=== PATIENT | male | born 1950 | race Two or more races ===

== ENCOUNTER → 2018-11-09 | Outpatient (CLI) | payer OTHER ==
[~2018-11-09] MED LIST: ASPI81TA27 PO; ATOR20TA50 PO; METF500T PO
[2018-11-09 08:54] LABS: Cholesterol 125 mg/dL (< 200); HDL Cholesterol 49 mg/dL (40-59); LDL Cholesterol 62 mg/dL (< 100); Triglycerides 140 mg/dL (< 150)
[2018-11-09 09:08] LABS: Free T4 (Free Thyroxine) 1.07 ng/dL (0.89-1.76); Prostate Specific Antigen 0.43 ng/mL (0.0-4.0)
== END | disposition home or self-care (01) ==
LOC: LAB 07:51
PROVIDERS: ATTEND Internal Medicine
DX: E78.5 Hyperlipidemia, unspecified (principal); E03.9 Hypothyroidism, unspecified; E11.9 Type 2 diabetes mellitus without complications; M25.511 Pain in right shoulder; E78.00 Pure hypercholesterolemia, unspecified
CPT/HCPCS: 36415; 80061; 82043; 83036; 84153; 84439; 84443

== ENCOUNTER → 2019-04-06 | Outpatient (CLI) | payer OTHER ==
[~2019-04-06] MED LIST changes: +ASPI-404 PO; -ASPI81TA27 PO
[2019-04-06 10:33] LABS: Basophils # (auto) 0.1 uL; Basophils % (auto) 1.6 % (0.0-2.0); Eosinophils # (auto) 0.3 uL; Eosinophils % (auto) 4.1 % (0.0-7.0); Hematocrit 48.2 % (41.0-53.0); Hemoglobin 16.8 g/dL (13.5-17.5); Lymphocytes # (auto) 2.5 uL; Lymphocytes % (auto) 36.4 % (10.0-50.0); Mean Corpuscular Hemoglobin 31.5 pg (28.0-32.0); Mean Corpuscular Hgb Conc. 34.9 g/dL (32.0-36.0); Mean Corpuscular Volume 90.2 fL (80.0-100.0); Monocytes # (auto) 0.5 uL; Monocytes % (auto) 7.6 % (0.0-12.0); Neutrophils # (auto) 3.5 uL; Neutrophils % (auto) 50.3 % (37.0-80.0); Nucleated Red Blood Cells % 0.3 %; Platelet Count (auto) 205 10^3/uL (140-450); Red Blood Cells 5.34 10^6/uL (4.5-5.90); Red Cell Distribution Width 13.2 % (11.8-14.3)
[2019-04-06 11:01] LABS: BUN/Creatinine Ratio 11.7; Calcium 9.1 mg/dL (8.5-10.1); Potassium 3.6 mmol/L (3.5-5.1)
[2019-04-06 11:15] LABS: Bilirubin, Total 1.8 mg/dL (0.2-1.0); Total Protein 7.7 g/dL (6.4-8.2)
== END | disposition home or self-care (01) ==
LOC: LAB 09:44
PROVIDERS: ATTEND Internal Medicine
DX: Z12.11 Encounter for screening for malignant neoplasm of colon (principal); E11.9 Type 2 diabetes mellitus without complications; E03.9 Hypothyroidism, unspecified
CPT/HCPCS: 36415; 80053; 83036; 84439; 84443; 85025

== ENCOUNTER → 2019-06-16 | Outpatient (CLI) | payer OTHER | END | disposition home or self-care (01) | LOC: Rad HDHVI 08:57 | PROVIDERS: ATTEND Internal Medicine Cardiovascular Disease | DX: I65.22 Occlusion and stenosis of left carotid artery (principal); I69.328 Other speech and language deficits following cerebral infarction; E11.9 Type 2 diabetes mellitus without complications; I10 Essential (primary) hypertension; Z95.1 Presence of aortocoronary bypass graft | CPT/HCPCS: 93880 ==

== ENCOUNTER → 2019-06-28 | Outpatient (CLI) | payer OTHER ==
[~2019-06-28] VITALS: Ht 177.8 cm; Wt 96.2 kg
[~2019-06-28] MED LIST changes: +ADENOSINE 81 MG in GIVE UN-DILUTED 0 ML IV ONE; +ADENOSINE 90 MG/30 ML INJ IV ONE
== END | disposition home or self-care (01) ==
LOC: Rad HDHVI 09:12
PROVIDERS: ATTEND Internal Medicine Cardiovascular Disease
DX: E11.9 Type 2 diabetes mellitus without complications (principal); R42 Dizziness and giddiness; I10 Essential (primary) hypertension; E78.00 Pure hypercholesterolemia, unspecified; Z95.1 Presence of aortocoronary bypass graft
CPT/HCPCS: 78452; 93005; 96374; 96375; A9500; J0153

== ENCOUNTER → 2020-01-24 | Outpatient (CLI) | payer OTHER ==
[~2020-01-24] MED LIST changes: -ADENOSINE 81 MG in GIVE UN-DILUTED 0 ML IV ONE; -ADENOSINE 90 MG/30 ML INJ IV ONE
[2020-01-24 07:38] LABS: Basophils # (auto) 0.1 10 ^3/uL (0-0.2); Lymphocytes # (auto) 2.1 10 ^3/uL (0.4-5.4); Monocytes # (auto) 0.6 10 ^3/uL (0-1.3); Neutrophils # (auto) 5.2 10 ^3/uL (1.6-8.6); Neutrophils % (auto) 62.6 % (37.0-80.0)
[2020-01-24 07:39] LABS: Basophils % (auto) 1.1 % (0.0-2.0); Eosinophils # (auto) 0.2 10 ^3/uL (0-0.8); Hematocrit 51.5 % (41.0-53.0); Lymphocytes % (auto) 25.8 % (10.0-50.0); Mean Corpuscular Hemoglobin 31.7 pg (28.0-32.0); Mean Corpuscular Hgb Conc. 34.9 g/dL (32.0-36.0); Mean Corpuscular Volume 90.8 fL (80.0-100.0); Monocytes % (auto) 7.5 % (0.0-12.0); Nucleated Red Blood Cells % 0.2 %; Platelet Count (auto) 228 10^3/uL (140-450); Red Blood Cells 5.67 10^6/uL (4.5-5.90); Red Cell Distribution Width 13.1 % (11.8-14.3); White Blood Cell 8.2 10^3/uL (4.4-10.8)
[2020-01-24 07:55] LABS: Urine Bacteria NONE SEEN /hpf (None Seen); Urine Blood Negative /uL (Negative); Urine Hyaline Cast FEW /lpf (0 - 2); Urine Mucus FEW (None Seen); Urine Specific Gravity 1.031 (1.001-1.035); Urine WBC 7 /hpf (0 - 3)
[2020-01-24 08:17] LABS: Albumin 4.1 g/dL (3.4-5.0); Calcium 9.4 mg/dL (8.5-10.1); Potassium 4.5 mmol/L (3.5-5.1)
[2020-01-24 08:22] LABS: Bilirubin, Total 1.9 mg/dL (0.2-1.0); Total Protein 8.3 g/dL (6.4-8.2)
[2020-01-24 09:01] LABS: BUN/Creatinine Ratio 15.1
[2020-01-24 10:31] LABS: Free T4 (Free Thyroxine) 1.18 ng/dL (0.89-1.76); Prostate Specific Antigen 0.41 ng/mL (0.0-4.0)
== END | disposition home or self-care (01) ==
LOC: LAB 07:08
PROVIDERS: ATTEND Internal Medicine
DX: I25.10 Atherosclerotic heart disease of native coronary artery without angina pectoris (principal); E11.9 Type 2 diabetes mellitus without complications; I10 Essential (primary) hypertension
CPT/HCPCS: 36415; 80053; 80061; 81001; 82043; 82607; 83036; 84153; 84439; 84443; 85025; 85652

== ENCOUNTER → 2022-03-13 | Outpatient (CLI) | payer OTHER ==
[~2022-03-13] MED LIST changes: -ASPI-404 PO; +ASPI-543 PO
[2022-03-13 07:19] LABS: Basophils # (auto) 0.1 10 ^3/uL (0-0.2); Basophils % (auto) 0.8 % (0.0-2.0); Eosinophils # (auto) 0.2 10 ^3/uL (0-0.8); Eosinophils % (auto) 3.5 % (0.0-7.0); Hematocrit 43.5 % (41.0-53.0); Hemoglobin 15.2 g/dL (13.5-17.5); Lymphocytes # (auto) 2.1 10 ^3/uL (0.4-5.4); Mean Corpuscular Hemoglobin 31.5 pg (28.0-32.0); Mean Corpuscular Hgb Conc. 34.9 g/dL (32.0-36.0); Mean Corpuscular Volume 90.2 fL (80.0-100.0); Monocytes # (auto) 0.5 10 ^3/uL (0-1.3); Monocytes % (auto) 7.8 % (0.0-12.0); Neutrophils # (auto) 3.9 10 ^3/uL (1.6-8.6); Neutrophils % (auto) 56.9 % (37.0-80.0); Nucleated Red Blood Cells % 0.1 %; Red Blood Cells 4.83 10^6/uL (4.5-5.90); Red Cell Distribution Width 13.5 % (11.8-14.3); White Blood Cell 6.9 10^3/uL (4.4-10.8)
[2022-03-13 07:40] LABS: Albumin 3.8 g/dL (3.4-5.0); Calcium 8.9 mg/dL (8.5-10.1); Potassium 3.8 mmol/L (3.5-5.1)
[2022-03-13 07:45] LABS: BUN/Creatinine Ratio 17.2; Bilirubin, Total 2.9 mg/dL (0.2-1.0); Total Protein 7.6 g/dL (6.4-8.2)
[2022-03-13 08:43] LABS: Free T4 (Free Thyroxine) 1.07 ng/dL (0.89-1.76); Prostate Specific Antigen 0.4 ng/mL (0.0-4.0)
[2022-03-13 12:01] LABS: Protein, Urine 12.1 mg/dL (0.0-11.9)
[2022-03-13 16:57] LABS: Urine Bacteria NONE SEEN /hpf (None Seen); Urine Blood Negative /uL (Negative); Urine Mucus FEW (None Seen); Urine Specific Gravity 1.031 (1.001-1.035); Urine WBC 3 /hpf (0 - 3)
== END | disposition home or self-care (01) ==
LOC: LAB 06:42
PROVIDERS: ATTEND Internal Medicine
DX: E11.9 Type 2 diabetes mellitus without complications (principal); I10 Essential (primary) hypertension
CPT/HCPCS: 36415; 80053; 80061; 81001; 82043; 82570; 82607; 83036; 84153; 84156; 84439; 84443; 85025; 85652

== ENCOUNTER → 2022-03-19 | Outpatient (CLI) | payer OTHER | END | disposition home or self-care (01) | LOC: LAB 12:46 | PROVIDERS: ATTEND Internal Medicine | DX: N40.0 Benign prostatic hyperplasia without lower urinary tract symptoms (principal); E11.9 Type 2 diabetes mellitus without complications; I10 Essential (primary) hypertension | CPT/HCPCS: 82270 ==

== ENCOUNTER 2022-04-29 23:59 | Emergency (ER) | payer OTHER ==
[~2022-04-29] VITALS: Ht 175.3 cm; Wt 91.8 kg
[2022-04-30 00:40] LABS: Basophils # (auto) 0.1 10 ^3/uL (0-0.2); Basophils % (auto) 0.7 % (0.0-2.0); Eosinophils # (auto) 0.4 10 ^3/uL (0-0.8); Eosinophils % (auto) 4.1 % (0.0-7.0); Hematocrit 45.6 % (41.0-53.0); Hemoglobin 16.2 g/dL (13.5-17.5); Lymphocytes # (auto) 3.8 10 ^3/uL (0.4-5.4); Lymphocytes % (auto) 44.9 % (10.0-50.0); Mean Corpuscular Hemoglobin 32.2 pg (28.0-32.0); Mean Corpuscular Hgb Conc. 35.4 g/dL (32.0-36.0); Mean Corpuscular Volume 91.1 fL (80.0-100.0); Monocytes # (auto) 0.7 10 ^3/uL (0-1.3); Neutrophils # (auto) 3.6 10 ^3/uL (1.6-8.6); Neutrophils % (auto) 42.3 % (37.0-80.0); Nucleated Red Blood Cells % 0.1 %; Red Blood Cells 5.01 10^6/uL (4.5-5.90); Red Cell Distribution Width 12.8 % (11.8-14.3); White Blood Cell 8.5 10^3/uL (4.4-10.8)
[2022-04-30 01:00] LABS: Calcium 9.2 mg/dL (8.5-10.1); Potassium 3.8 mmol/L (3.5-5.1)
[2022-04-30 01:03] LABS: BUN/Creatinine Ratio 14.7
[2022-04-30 01:05] LABS: Bilirubin, Total 1.9 mg/dL (0.2-1.0); Total Protein 7.7 g/dL (6.4-8.2)
[2022-04-30] MEDS ORDERED: NITROGLYCERIN 0.4 MG SL TAB SL ONE (01:15)
[2022-04-30 01:48] LABS: Urine Bacteria FEW /hpf (None Seen); Urine Blood Negative /uL (Negative); Urine Mucus FEW (None Seen); Urine Specific Gravity 1.035 (1.001-1.035); Urine WBC 54 /hpf (0 - 3)
[2022-04-30] MEDS ORDERED: BACDST PO (02:27)
[2022-04-30] MEDS ORDERED: cloNIDine HCL 0.1 MG TAB PO ONE ×2 (02:30→03:30)
[2022-04-30] MEDS ORDERED: cefTRIAXone SOD 1,000 MG VL IM ONE (02:30)
[2022-04-30] MEDS ORDERED: cloNIDine HCL 0.1 MG TAB ONE (03:08)
[2022-04-30 03:14] VITALS: BP 170/83
== END 2022-04-30 04:17 | disposition home or self-care (01) ==
LOC: ER 23:59
DX: R07.89 Other chest pain (principal); N39.0 Urinary tract infection, site not specified; I10 Essential (primary) hypertension; E11.9 Type 2 diabetes mellitus without complications; Z95.1 Presence of aortocoronary bypass graft; Z98.61 Coronary angioplasty status
CPT/HCPCS: 36415; 71045; 80053; 81001; 84484; 85025; 93005; 96372; 99285; J0696

== ENCOUNTER → 2022-07-10 | Outpatient (CLI) | payer OTHER ==
[~2022-07-10] MED LIST changes: +BACDST PO
== END | disposition home or self-care (01) ==
LOC: Rad HDHVI 08:03
PROVIDERS: ATTEND Internal Medicine Cardiovascular Disease
DX: I08.8 Other rheumatic multiple valve diseases (principal); R07.89 Other chest pain; I10 Essential (primary) hypertension
CPT/HCPCS: 93306

== ENCOUNTER → 2022-07-17 | Outpatient (CLI) | payer OTHER | END | disposition home or self-care (01) | LOC: Rad HDHVI 10:57 | PROVIDERS: ATTEND Internal Medicine Cardiovascular Disease | DX: I10 Essential (primary) hypertension (principal); E78.5 Hyperlipidemia, unspecified | CPT/HCPCS: 93880 ==

== ENCOUNTER → 2022-07-25 | Outpatient (CLI) | payer OTHER ==
[~2022-07-25] VITALS: Ht 175.3 cm; Wt 88.5 kg
[~2022-07-25] MED LIST changes: +ADENOSINE 74 MG in GIVE UN-DILUTED 0 ML IV ONE; +ADENOSINE 90 MG/30 ML INJ IV ONE
== END | disposition home or self-care (01) ==
LOC: Rad HDHVI 08:05
PROVIDERS: ATTEND Internal Medicine Cardiovascular Disease
DX: I10 Essential (primary) hypertension (principal); E78.5 Hyperlipidemia, unspecified; E11.9 Type 2 diabetes mellitus without complications; R07.9 Chest pain, unspecified; I25.10 Atherosclerotic heart disease of native coronary artery without angina pectoris; Z95.1 Presence of aortocoronary bypass graft
CPT/HCPCS: 78452; 93005; 96374; 96375; A9500; J0153

== ENCOUNTER → 2022-10-24 | Outpatient (CLI) | payer OTHER ==
[~2022-10-24] MED LIST changes: -ADENOSINE 74 MG in GIVE UN-DILUTED 0 ML IV ONE; -ADENOSINE 90 MG/30 ML INJ IV ONE
[2022-10-24 08:12] LABS: Basophils # (auto) 0.1 10 ^3/uL (0-0.2); Basophils % (auto) 0.9 % (0.0-2.0); Eosinophils # (auto) 0.5 10 ^3/uL (0-0.8); Eosinophils % (auto) 5.2 % (0.0-7.0); Hematocrit 44.8 % (41.0-53.0); Hemoglobin 16.1 g/dL (13.5-17.5); Lymphocytes # (auto) 2.3 10 ^3/uL (0.4-5.4); Lymphocytes % (auto) 25.7 % (10.0-50.0); Mean Corpuscular Hemoglobin 33.2 pg (28.0-32.0); Mean Corpuscular Volume 92.3 fL (80.0-100.0); Monocytes # (auto) 0.7 10 ^3/uL (0-1.3); Monocytes % (auto) 7.6 % (0.0-12.0); Neutrophils # (auto) 5.4 10 ^3/uL (1.6-8.6); Neutrophils % (auto) 60.6 % (37.0-80.0); Nucleated Red Blood Cells % 0.1 %; Red Blood Cells 4.85 10^6/uL (4.5-5.90); Red Cell Distribution Width 13.5 % (11.8-14.3); White Blood Cell 8.9 10^3/uL (4.4-10.8)
[2022-10-24 08:54] LABS: Albumin 3.9 g/dL (3.4-5.0); Calcium 9.2 mg/dL (8.5-10.1); Potassium 4.4 mmol/L (3.5-5.1)
[2022-10-24 08:58] LABS: Bilirubin, Total 1.5 mg/dL (0.2-1.0); Total Protein 7.7 g/dL (6.4-8.2)
== END | disposition home or self-care (01) ==
LOC: LAB 07:00
PROVIDERS: ATTEND Internal Medicine
DX: I10 Essential (primary) hypertension (principal); E11.9 Type 2 diabetes mellitus without complications; I25.10 Atherosclerotic heart disease of native coronary artery without angina pectoris
CPT/HCPCS: 36415; 80053; 83036; 85025

== ENCOUNTER → 2022-11-20 | Outpatient (CLI) | payer OTHER ==
[2022-11-20 13:12] LABS: Micro Albumin 5.56 mg/L (0-30.0)
== END | disposition home or self-care (01) ==
LOC: LAB 11:50
PROVIDERS: ATTEND Internal Medicine
DX: E11.21 Type 2 diabetes mellitus with diabetic nephropathy (principal)
CPT/HCPCS: 82043; 82570

== ENCOUNTER 2023-05-24 18:12 | Inpatient (IN) | payer OTHER ==
[~2023-05-24] VITALS: Ht 175.3 cm; Wt 90.2 kg
[2023-05-24] MEDS ORDERED: NITROGLYCERIN 2% OINT 1GM PKG TD ONE (19:00)
[2023-05-24] MEDS ORDERED: amLODIPine BESYLATE 5 MG TAB PO ONE (19:00)
[2023-05-24 19:12] LABS: Basophils # (auto) 0.1 10 ^3/uL (0-0.2); Basophils % (auto) 0.8 % (0.0-2.0); Eosinophils # (auto) 0.4 10 ^3/uL (0-0.8); Eosinophils % (auto) 4.2 % (0.0-7.0); Hematocrit 48.7 % (41.0-53.0); Lymphocytes # (auto) 2.7 10 ^3/uL (0.4-5.4); Lymphocytes % (auto) 31.2 % (10.0-50.0); Mean Corpuscular Hemoglobin 32.4 pg (28.0-32.0); Mean Corpuscular Hgb Conc. 34.9 g/dL (32.0-36.0); Mean Corpuscular Volume 92.9 fL (80.0-100.0); Monocytes # (auto) 0.7 10 ^3/uL (0-1.3); Neutrophils # (auto) 4.8 10 ^3/uL (1.6-8.6); Neutrophils % (auto) 55.8 % (37.0-80.0); Nucleated Red Blood Cells % 0.4 %; Red Blood Cells 5.25 10^6/uL (4.5-5.90); Red Cell Distribution Width 13.4 % (11.8-14.3); White Blood Cell 8.6 10^3/uL (4.4-10.8)
[2023-05-24 19:21] LABS: Magnesium 1.8 mg/dL (1.6-2.6)
[2023-05-24 19:23] LABS: Albumin 4.4 g/dL (3.2-4.8); Alkaline Phosphatase 120 U/L (46-116); Anion Gap 7 (5-15); Aspartate Aminotransferase 10 U/L (13-40); BUN/Creatinine Ratio 8.4 (10.0-20.0); Bilirubin, Total 1.8 mg/dL (0.2-1.0); Blood Urea Nitrogen 7 mg/dL (9-23); Calcium 9.6 mg/dL (8.7-10.4); Carbon Dioxide 26 mmol/L (20-30); Chloride 103 mmol/L (98-107); Glucose 234 mg/dL (74-106); Potassium 3.8 mmol/L (3.5-5.1); Sodium 136 mmol/L (136-145)
[2023-05-24 19:24] LABS: Total Protein 7.6 g/dL (5.7-8.2)
[2023-05-24 19:26] LABS: INR 0.99 (0.9-1.15); Prothrombin Time 10.4 sec (9.3-11.8)
[2023-05-24 19:30] VITALS: O2SAT 97
[2023-05-24 19:30] LABS: Alanine Aminotransferase < 9 U/L (7-40)
[2023-05-24 21:32] LABS: Urine Bacteria NONE SEEN /hpf (None Seen); Urine Blood Negative /uL (Negative); Urine Clarity Clear (Clear); Urine Color Colorless (Yellow); Urine Protein, UAD Negative (Negative); Urine Specific Gravity 1.009 (1.001-1.035); Urine Urobilinogen Normal (Negative); Urine WBC 1 /hpf (0 - 3); Urine pH 5.5 (5.0-8.0)
[2023-05-24] MEDS ORDERED: hydrALAZINE HCL 20 MG/ML VL IV PRN (23:30)
[2023-05-24] MEDS ORDERED: ACETAMINOPHEN 325 MG TAB PO PRN (23:30)
[2023-05-24] MEDS ORDERED: ONDANSETRON HCL 4 MG/2 ML VIAL IV PRN (23:30)
[2023-05-24] MEDS ORDERED: DOCUSATE SOD 100 MG CAP PO PRN (23:30)
[2023-05-24] MEDS ORDERED: DEXTROSE (50%) 50ML SYRG IV PRN (23:30)
[2023-05-24] MEDS ORDERED: HYDROcodone-ACET 5/325MG TAB PO PRN (23:30)
[2023-05-24] MEDS: SODIUM CHLORIDE 0.9% 1,000 ML IV SCH (23:52)
[2023-05-25] VITALS (8 sets, daily range): BP systolic 121–157; BP diastolic 73–78; PULSE 64–101; RESP 13–21; TEMP 36.6; O2SAT 95–98
[2023-05-25] MEDS ORDERED: NITROGLYCERIN 0.4 MG SL TAB SL PRN
[2023-05-25] MEDS ORDERED: MORPHINE SULFATE INJ 2 MG/ml SYRG IV PRN
[2023-05-25 05:08] LABS: Basophils # (auto) 0.1 10 ^3/uL (0-0.2); Basophils % (auto) 0.8 % (0.0-2.0); Eosinophils # (auto) 0.4 10 ^3/uL (0-0.8); Eosinophils % (auto) 5.1 % (0.0-7.0); Hematocrit 45.1 % (41.0-53.0); Hemoglobin 16.1 g/dL (13.5-17.5); Lymphocytes % (auto) 24.7 % (10.0-50.0); Mean Corpuscular Hemoglobin 32.6 pg (28.0-32.0); Mean Corpuscular Hgb Conc. 35.7 g/dL (32.0-36.0); Mean Corpuscular Volume 91.5 fL (80.0-100.0); Monocytes # (auto) 0.6 10 ^3/uL (0-1.3); Monocytes % (auto) 7.6 % (0.0-12.0); Neutrophils # (auto) 4.9 10 ^3/uL (1.6-8.6); Neutrophils % (auto) 61.8 % (37.0-80.0); Nucleated Red Blood Cells % 0.2 %; Red Blood Cells 4.93 10^6/uL (4.5-5.90); Red Cell Distribution Width 13.2 % (11.8-14.3)
[2023-05-25 05:24] LABS: Albumin 3.8 g/dL (3.2-4.8); Alkaline Phosphatase 88 U/L (46-116); Anion Gap 6 (5-15); Aspartate Aminotransferase < 8 U/L (13-40); Blood Urea Nitrogen 7 mg/dL (9-23); Calcium 9.1 mg/dL (8.7-10.4); Carbon Dioxide 28 mmol/L (20-30); Chloride 106 mmol/L (98-107); Glucose 172 mg/dL (74-106); Potassium 3.7 mmol/L (3.5-5.1); Sodium 140 mmol/L (136-145)
[2023-05-25 05:25] LABS: Bilirubin, Total 2.5 mg/dL (0.2-1.0); Total Protein 6.7 g/dL (5.7-8.2)
[2023-05-25 05:26] LABS: BUN/Creatinine Ratio 8.6 (10.0-20.0)
[2023-05-25 06:10] LABS: Alanine Aminotransferase < 9 U/L (7-40)
[2023-05-25] MEDS: ACCU-CHEK COMFORT CURVE STRIP VI SCH ×4 (06:59→21:34)
[2023-05-25] MEDS ORDERED: InsuLIN REG 1unit/0.01ml Soln (100units/ml) SC SCH ×2 (07:00→22:00)
[2023-05-25] MEDS: ASPirin 81 mg TAB PO SCH (10:00)
[2023-05-25] MEDS: amLODIPine BESYLATE 5 MG TAB PO SCH (11:17)
[2023-05-25 13:00] LABS: LDL Cholesterol 130 mg/dL (< 100); Triglycerides 156 mg/dL (< 150)
[2023-05-25 13:01] LABS: Cholesterol 194 mg/dL (< 200); HDL Cholesterol 50 mg/dL (40-59)
[2023-05-25] MEDS: SODIUM CHLORIDE 0.9% 1,000 ML IV SCH (16:10)
[2023-05-25] MEDS ORDERED: ATORVASTATIN 20 MG TAB PO SCH (22:00)
[2023-05-26 04:55] VITALS: BP 143/82; PULSE 74; RESP 16; TEMP 97.8; O2SAT 98
[2023-05-26] MEDS: ACCU-CHEK COMFORT CURVE STRIP VI SCH ×3 (06:14→17:00)
[2023-05-26] MEDS ORDERED: EMPAGLIFLOZIN 10 MG TAB PO SCH (07:00)
[2023-05-26 08:40] VITALS: BP 137/77; PULSE 71; RESP 18; TEMP 97.7; O2SAT 97
[2023-05-26] MEDS: SODIUM CHLORIDE 0.9% 1,000 ML IV SCH (08:50)
[2023-05-26] MEDS: ASPirin 81 mg TAB PO SCH (11:06)
[2023-05-26] MEDS: amLODIPine BESYLATE 5 MG TAB PO SCH (11:07)
[2023-05-26 12:35] VITALS: BP 122/84; PULSE 64; RESP 18; TEMP 97.7; O2SAT 98
[2023-05-26 16:40] VITALS: BP 121/68; PULSE 65; RESP 18; TEMP 97.5; O2SAT 99
== END 2023-05-26 18:00 | disposition home or self-care (01) | DRG 313 ==
LOC: ER 18:12 → TELE 23:58 → WEST WING 05-25 08:54 → TELE-WESTW 05-25 23:59
PROVIDERS: ADMIT Nurse Practitioner Family; ATTEND Family Medicine
DX: R07.89 Other chest pain (principal); I69.351 Hemiplegia and hemiparesis following cerebral infarction affecting right dominant side; I16.0 Hypertensive urgency; E11.65 Type 2 diabetes mellitus with hyperglycemia; M19.90 Unspecified osteoarthritis, unspecified site; I10 Essential (primary) hypertension; Z81.8 Family history of other mental and behavioral disorders; Z83.3 Family history of diabetes mellitus; Z95.1 Presence of aortocoronary bypass graft; Z95.5 Presence of coronary angioplasty implant and graft
CPT/HCPCS: 36415; 71045; 80053; 80061; 81001; 82962; 83690; 83735; 84484; 85025; 85379; 85610; 93005; G0378

== ENCOUNTER → 2023-05-29 | Outpatient (CLI) | payer OTHER ==
[2023-05-29 07:06] LABS: Basophils # (auto) 0.1 10 ^3/uL (0-0.2); Basophils % (auto) 0.9 % (0.0-2.0); Eosinophils # (auto) 0.4 10 ^3/uL (0-0.8); Eosinophils % (auto) 5.3 % (0.0-7.0); Hematocrit 46.8 % (41.0-53.0); Hemoglobin 16.4 g/dL (13.5-17.5); Lymphocytes # (auto) 2.4 10 ^3/uL (0.4-5.4); Lymphocytes % (auto) 32.5 % (10.0-50.0); Mean Corpuscular Hemoglobin 32.4 pg (28.0-32.0); Mean Corpuscular Volume 92.5 fL (80.0-100.0); Monocytes # (auto) 0.6 10 ^3/uL (0-1.3); Monocytes % (auto) 8.4 % (0.0-12.0); Neutrophils # (auto) 3.8 10 ^3/uL (1.6-8.6); Neutrophils % (auto) 52.9 % (37.0-80.0); Nucleated Red Blood Cells % 0.1 %; Red Blood Cells 5.06 10^6/uL (4.5-5.90); Red Cell Distribution Width 13.6 % (11.8-14.3); White Blood Cell 7.3 10^3/uL (4.4-10.8)
[2023-05-29 07:48] LABS: Erythrocyte Sedimentation Rate 8 mm/hr (0-20); Prostate Specific Antigen 0.42 ng/mL (0.0-4.0)
[2023-05-29 07:50] LABS: Albumin 4.4 g/dL (3.2-4.8); Alkaline Phosphatase 92 U/L (46-116); Anion Gap 6 (5-15); Aspartate Aminotransferase 18 U/L (13-40); BUN/Creatinine Ratio 14.4 (10.0-20.0); Blood Urea Nitrogen 13 mg/dL (9-23); Calcium 9.5 mg/dL (8.5-10.1); Carbon Dioxide 29 mmol/L (20-30); Chloride 105 mmol/L (98-107); Cholesterol 162 mg/dL (< 200); Glucose 138 mg/dL (74-106); LDL Cholesterol 96 mg/dL (< 100); Potassium 4.3 mmol/L (3.5-5.1); Sodium 140 mmol/L (136-145); Triglycerides 129 mg/dL (< 150)
[2023-05-29 07:51] LABS: Bilirubin, Total 3.8 mg/dL (0.2-1.0); HDL Cholesterol 49 mg/dL (40-59); Total Protein 7.4 g/dL (5.7-8.2)
[2023-05-29 07:52] LABS: Alanine Aminotransferase 9 U/L (7-40)
[2023-05-29 07:53] LABS: Free T4 (Free Thyroxine) 1.16 ng/dL (0.89-1.76)
[2023-05-29 13:08] LABS: Urine Bacteria FEW /hpf (None Seen); Urine Blood Negative /uL (Negative); Urine Clarity Clear (Clear); Urine Color Yellow (Yellow); Urine Protein, UAD Negative (Negative); Urine Specific Gravity 1.026 (1.001-1.035); Urine Urobilinogen Normal (Negative); Urine WBC 1 /hpf (0 - 3); Urine pH 5.5 (5.0-8.0)
== END | disposition home or self-care (01) ==
LOC: LAB 06:22
PROVIDERS: ATTEND Internal Medicine
DX: I10 Essential (primary) hypertension (principal); E11.9 Type 2 diabetes mellitus without complications; I25.10 Atherosclerotic heart disease of native coronary artery without angina pectoris
CPT/HCPCS: 36415; 80053; 80061; 81001; 82607; 83036; 84153; 84439; 84443; 85025; 85652

== ENCOUNTER → 2023-06-04 | Outpatient (CLI) | payer OTHER ==
[2023-06-04 13:07] LABS: Albumin 4.3 g/dL (3.2-4.8); Alkaline Phosphatase 87 U/L (46-116); Anion Gap 6 (5-15); Aspartate Aminotransferase < 8 U/L (13-40); BUN/Creatinine Ratio 9.4 (10.0-20.0); Bilirubin, Total 2.6 mg/dL (0.2-1.0); Blood Urea Nitrogen 9 mg/dL (9-23); Calcium 9.6 mg/dL (8.5-10.1); Carbon Dioxide 27 mmol/L (20-30); Chloride 105 mmol/L (98-107); Glucose 132 mg/dL (74-106); Potassium 4.1 mmol/L (3.5-5.1); Sodium 138 mmol/L (136-145)
[2023-06-04 13:08] LABS: Total Protein 7.4 g/dL (5.7-8.2)
[2023-06-04 13:34] LABS: Alanine Aminotransferase < 9 U/L (7-40)
[2023-06-05 10:47] LABS: Anti-Nuclear Antibody Direct Negative (Negative); Carbohydrate Antigen 19-9 9 U/mL (0-35); Hepatitis B Core Total Antibod Negative (Negative)
[2023-06-05 12:42] LABS: Hepatitis B Surface Antibody Negative (Negative)
[2023-06-05 12:54] LABS: Hepatitis B Surface Antigen Negative (Negative)
[2023-06-05 13:15] LABS: Hepatitis A Ab IgM Negative; Hepatitis B Core IgM Negative
[2023-06-05 13:16] LABS: Hepatitis C Antibody Negative (Negative)
[2023-06-05 13:22] LABS: Hepatitis A Total Antibody Positive (Negative)
[2023-06-06 14:06] LABS: Mitochondrial (M2) Antibody <20.0 Units (0.0-20.0)
== END | disposition home or self-care (01) ==
LOC: LAB 11:55
PROVIDERS: ATTEND Internal Medicine
DX: E11.51 Type 2 diabetes mellitus with diabetic peripheral angiopathy without gangrene (principal); E53.8 Deficiency of other specified B group vitamins; E80.6 Other disorders of bilirubin metabolism; R17 Unspecified jaundice; R10.13 Epigastric pain; R10.12 Left upper quadrant pain
CPT/HCPCS: 36415; 80053; 83615; 85045; 86038; 86301; 86705; 86706; 86708; 86709; 86803; 86880; 87340

== ENCOUNTER 2023-06-25 15:00 | Inpatient (IN) | payer OTHER ==
[~2023-06-25] VITALS: Ht 175.3 cm; Wt 89.4 kg
[2023-06-25 15:30] LABS: Basophils # (auto) 0.1 10 ^3/uL (0-0.2); Basophils % (auto) 0.8 % (0.0-2.0); Eosinophils # (auto) 0.3 10 ^3/uL (0-0.8); Eosinophils % (auto) 3.8 % (0.0-7.0); Hematocrit 47.3 % (41.0-53.0); Hemoglobin 16.6 g/dL (13.5-17.5); Lymphocytes # (auto) 2.3 10 ^3/uL (0.4-5.4); Lymphocytes % (auto) 29.9 % (10.0-50.0); Mean Corpuscular Hemoglobin 32.3 pg (28.0-32.0); Mean Corpuscular Hgb Conc. 35.1 g/dL (32.0-36.0); Mean Corpuscular Volume 92.2 fL (80.0-100.0); Monocytes # (auto) 0.6 10 ^3/uL (0-1.3); Monocytes % (auto) 7.8 % (0.0-12.0); Neutrophils # (auto) 4.4 10 ^3/uL (1.6-8.6); Neutrophils % (auto) 57.7 % (37.0-80.0); Nucleated Red Blood Cells % 0.5 %; Red Blood Cells 5.13 10^6/uL (4.5-5.90); Red Cell Distribution Width 13.2 % (11.8-14.3); White Blood Cell 7.6 10^3/uL (4.4-10.8)
[2023-06-25 15:53] LABS: Alanine Aminotransferase 10 U/L (7-40); Alkaline Phosphatase 105 U/L (46-116); Anion Gap 8 (5-15); Aspartate Aminotransferase 17 U/L (13-40); BUN/Creatinine Ratio 17.8 (10.0-20.0); Blood Urea Nitrogen 16 mg/dL (9-23); Calcium 9.6 mg/dL (8.5-10.1); Carbon Dioxide 29 mmol/L (20-30); Chloride 104 mmol/L (98-107); Glucose 213 mg/dL (74-106); Potassium 4.1 mmol/L (3.5-5.1); Sodium 141 mmol/L (136-145)
[2023-06-25 15:54] LABS: Albumin 4.4 g/dL (3.2-4.8); Bilirubin, Total 2.2 mg/dL (0.2-1.0); Total Protein 7.1 g/dL (5.7-8.2)
[2023-06-25] MEDS ORDERED: ASPirin 325 MG TAB PO ONE (17:00)
[2023-06-25 20:00] VITALS: RESP 16; O2SAT 98
[2023-06-25] MEDS ORDERED: NITROGLYCERIN 0.4 MG SL TAB SL PRN (20:15)
[2023-06-25] MEDS ORDERED: ACETAMINOPHEN 325 MG TAB PO PRN (20:15)
[2023-06-25] MEDS ORDERED: ONDANSETRON HCL 4 MG/2 ML VIAL IV PRN (20:15)
[2023-06-25] MEDS ORDERED: DEXTROSE (50%) 50ML SYRG IV PRN (20:15)
[2023-06-25] MEDS ORDERED: MORPHINE SULFATE INJ 2 MG/ml SYRG IV PRN (20:15)
[2023-06-25] MEDS: ACCU-CHEK COMFORT CURVE STRIP VI SCH (22:09)
[2023-06-25] MEDS: InsuLIN REG 1unit/0.01ml Soln (100units/ml) SC SCH (22:18)
[2023-06-25] MEDS: ATORVASTATIN 20 MG TAB PO SCH (22:18)
[2023-06-25 22:52] VITALS: BP 145/84; PULSE 81; RESP 18; TEMP 98.2; O2SAT 97
[2023-06-25] MEDS ORDERED: TRAM50TA2 PO (23:36)
[2023-06-25] MEDS ORDERED: LISI20TA56 PO (23:36)
[2023-06-25] MEDS ORDERED: GLIP5TAB12 PO (23:36)
[2023-06-26 06:20] LABS: Chloride 106 mmol/L (98-107); Potassium 3.7 mmol/L (3.5-5.1); Sodium 140 mmol/L (136-145)
[2023-06-26 06:21] LABS: Anion Gap 5 (5-15); Carbon Dioxide 29 mmol/L (20-30)
[2023-06-26 06:22] LABS: Calcium 9.3 mg/dL (8.7-10.4)
[2023-06-26 06:26] LABS: BUN/Creatinine Ratio 13.5 (10.0-20.0); Blood Urea Nitrogen 14 mg/dL (9-23); Glucose 192 mg/dL (74-106)
[2023-06-26] MEDS: ACCU-CHEK COMFORT CURVE STRIP VI SCH ×4 (06:29→22:03)
[2023-06-26] MEDS: InsuLIN REG 1unit/0.01ml Soln (100units/ml) SC SCH ×4 (06:34→22:08)
[2023-06-26 08:00] VITALS: PULSE 79; RESP 18; O2SAT 95
[2023-06-26 09:00] VITALS: BP 136/78; PULSE 69; RESP 20; TEMP 98.3; O2SAT 99
[2023-06-26] MEDS: ENOXAPARIN SOD 40 MG/0.4 ML SYRINGE SC SCH (09:11)
[2023-06-26] MEDS: LISINOPRIL 10 MG TAB PO SCH (09:11)
[2023-06-26] MEDS: ASPirin 81 mg TAB PO SCH (09:11)
[2023-06-26] MEDS ORDERED: CYANOCOBALAMIN (B-12) 1000 MCG/1 ML VIAL IM ONE (10:30)
[2023-06-26 13:00] VITALS: BP 104/65; PULSE 65; RESP 18; TEMP 97.9; O2SAT 99
[2023-06-26 16:51] VITALS: BP 123/74; PULSE 80; RESP 18; TEMP 97.1; O2SAT 97
[2023-06-26 17:12] LABS: Urine Bacteria NONE SEEN /hpf (None Seen); Urine Blood Negative /uL (Negative); Urine Clarity Clear (Clear); Urine Color Colorless (Yellow); Urine Protein, UAD Negative (Negative); Urine Specific Gravity 1.009 (1.001-1.035); Urine WBC 2 /hpf (0 - 3)
[2023-06-26 17:21] LABS: Amphetamine Screen, Urine Neg (NEGATIVE); Barbiturate Scree,Urine Neg (NEGATIVE); Benzodiazephine Screen, Urine Neg (NEGATIVE); Cannabinoid Screen, Urine Neg (NEGATIVE); Cocaine Screen, Urine Neg (NEGATIVE); Opiate Scree,Urine Neg (NEGATIVE); Phencyclidine Screen, Urine Neg (NEGATIVE)
[2023-06-26 20:00] VITALS: PULSE 85
[2023-06-26 22:00] VITALS: BP 102/68; PULSE 71; RESP 19; TEMP 97.8; O2SAT 98
[2023-06-26] MEDS: ATORVASTATIN 20 MG TAB PO SCH (22:03)
[2023-06-27] VITALS (10 sets, daily range): BP systolic 117–146; BP diastolic 69–88; PULSE 64–89; RESP 12–21; TEMP 36.2; O2SAT 95–99
[2023-06-27] MEDS: InsuLIN REG 1unit/0.01ml Soln (100units/ml) SC SCH ×3 (06:46→17:00)
[2023-06-27] MEDS: ACCU-CHEK COMFORT CURVE STRIP VI SCH ×3 (06:46→17:27)
[2023-06-27] MEDS: ENOXAPARIN SOD 40 MG/0.4 ML SYRINGE SC SCH (10:00)
[2023-06-27] MEDS: LISINOPRIL 10 MG TAB PO SCH (10:15)
[2023-06-27] MEDS: ASPirin 81 mg TAB PO SCH (10:15)
[2023-06-27] MEDS ORDERED: IOHEXOL 350 MG/ML 100ML IJ ONE (13:09)
[2023-06-27] MEDS ORDERED: SODIUM CHL 0.9% 0 ML ONE (13:09)
[2023-06-27] MEDS ORDERED: MIDAZOLAM HCL 2MG/2ML 2ml VIAL (1mg/ml) ONE (13:09)
[2023-06-27] MEDS ORDERED: fentaNYL CITRATE 100 MCG/2 ML VL ONE (13:09)
[2023-06-27] MEDS ORDERED: LIDOCAINE 2%HCL (LOCAL ANESTH.) INJ 20ML MDV ONE (13:09)
[2023-06-27] MEDS ORDERED: ANGIOMAX 250 MG VIAL IV ONE (13:09)
[2023-06-27] MEDS ORDERED: ASPI-543 PO (16:39)
[2023-06-27] MEDS ORDERED: CLOP75TA28 PO (16:39)
== END 2023-06-27 19:45 | disposition home or self-care (01) | DRG 287 ==
LOC: ER 15:00 → TELE 20:18 → TELE-EAST 22:20
PROVIDERS: ADMIT Nurse Practitioner; ATTEND Internal Medicine
PROC: 4A023N7 Measurement of Cardiac Sampling and Pressure, Left Heart, Percutaneous Approach (ICD-10-PCS; principal; 2023-06-27)
PROC: B2111ZZ Fluoroscopy of Multiple Coronary Arteries using Low Osmolar Contrast (ICD-10-PCS; 2023-06-27)
PROC: B2131ZZ Fluoroscopy of Multiple Coronary Artery Bypass Grafts using Low Osmolar Contrast (ICD-10-PCS; 2023-06-27)
PROC: B2181ZZ Fluoroscopy of Left Internal Mammary Bypass Graft using Low Osmolar Contrast (ICD-10-PCS; 2023-06-27)
PROC: B2151ZZ Fluoroscopy of Left Heart using Low Osmolar Contrast (ICD-10-PCS; 2023-06-27)
PROC: B3121ZZ Fluoroscopy of Left Subclavian Artery using Low Osmolar Contrast (ICD-10-PCS; 2023-06-27)
DX: I24.9 Acute ischemic heart disease, unspecified (principal); E11.9 Type 2 diabetes mellitus without complications; I10 Essential (primary) hypertension; E87.6 Hypokalemia; E78.5 Hyperlipidemia, unspecified; I69.30 Unspecified sequelae of cerebral infarction; Z95.5 Presence of coronary angioplasty implant and graft; Z95.1 Presence of aortocoronary bypass graft
CPT/HCPCS: 36415; 71045; 75820; 80048; 80053; 80307; 81001; 82962; 83880; 84484; 85025; 85379; 93005; 93306; 93459; 99152; G0378; J1815; J2250

== ENCOUNTER → 2023-07-16 | Outpatient (CLI) | payer OTHER ==
[~2023-07-16] MED LIST changes: -BACDST PO; +CLOP75TA28 PO; +GLIP5TAB12 PO; +LISI20TA56 PO; -METF500T PO; +TRAM50TA2 PO
[2023-07-16 13:29] LABS: Bilirubin, Direct 0.7 mg/dL (<0.3); Bilirubin, Total 1.9 mg/dL (0.2-1.0)
[2023-07-17 12:06] LABS: Haptoglobin 31 mg/dL (34-355)
== END | disposition home or self-care (01) ==
LOC: LAB 12:34
PROVIDERS: ATTEND Internal Medicine
DX: E11.9 Type 2 diabetes mellitus without complications (principal); E80.6 Other disorders of bilirubin metabolism
CPT/HCPCS: 36415; 82105; 82247; 82248; 83010; 83615; 85045; 86880

== ENCOUNTER 2023-12-12 11:31 | Day surgery (SDC) | payer OTHER ==
[2023-12-10 13:49] LABS: Basophils # (auto) 0.1 10 ^3/uL (0-0.2); Eosinophils # (auto) 0.2 10 ^3/uL (0-0.8); Eosinophils % (auto) 2.9 % (0.0-7.0); Hematocrit 44.1 % (41.0-53.0); Hemoglobin 15.5 g/dL (13.5-17.5); Lymphocytes # (auto) 1.8 10 ^3/uL (0.4-5.4); Lymphocytes % (auto) 22.2 % (10.0-50.0); Mean Corpuscular Hemoglobin 32.6 pg (28.0-32.0); Mean Corpuscular Hgb Conc. 35.1 g/dL (32.0-36.0); Mean Corpuscular Volume 92.9 fL (80.0-100.0); Monocytes # (auto) 0.6 10 ^3/uL (0-1.3); Neutrophils # (auto) 5.5 10 ^3/uL (1.6-8.6); Neutrophils % (auto) 66.9 % (37.0-80.0); Red Blood Cells 4.74 10^6/uL (4.5-5.90); Red Cell Distribution Width 13.8 % (11.8-14.3); White Blood Cell 8.2 10^3/uL (4.4-10.8)
[2023-12-10 14:09] LABS: INR 1.03 (0.9-1.15); Partial Thromboplastin Time 27.1 SEC (24.5-34.5); Prothrombin Time 10.8 sec (9.3-11.8)
[2023-12-10 14:37] LABS: Albumin 4.4 g/dL (3.2-4.8); Alkaline Phosphatase 94 U/L (46-116); Anion Gap 6 (5-15); Aspartate Aminotransferase 13 U/L (13-40); BUN/Creatinine Ratio 13.9 (10.0-20.0); Bilirubin, Total 2.8 mg/dL (0.2-1.0); Blood Urea Nitrogen 14 mg/dL (9-23); Calcium 9.5 mg/dL (8.5-10.1); Carbon Dioxide 29 mmol/L (20-30); Chloride 105 mmol/L (98-107); Glucose 221 mg/dL (74-106); Potassium 3.8 mmol/L (3.5-5.1); Sodium 140 mmol/L (136-145); Total Protein 7.4 g/dL (5.7-8.2)
[2023-12-10 14:57] LABS: Alanine Aminotransferase 9 U/L (7-40)
[~2023-12-12] VITALS: Ht 175.3 cm; Wt 89.8 kg
[~2023-12-12 11:31] MED LIST changes: +CILO100T3 PO; -CLOP75TA28 PO; -GLIP5TAB12 PO; +GLIP5TAB21 PO; +PANT40TA2 PO
[2023-12-12 14:33] VITALS: O2SAT 98
[2023-12-12] MEDS: LIDOCAINE VISCOUS 2% 15ML UD ONE (14:36)
[2023-12-12] MEDS: diphenhdrAMINE HCL 50 MG/1 ML VL ONE (14:38)
[2023-12-12] MEDS: MIDAZOLAM HCL 5 MG/ML-1ML VIAL ONE (14:38)
[2023-12-12] MEDS: fentaNYL CITRATE 100 MCG/2 ML VL ONE (14:38)
[2023-12-12 14:48] VITALS: O2SAT 98
[2023-12-12 14:54] VITALS: RESP 11; TEMP 97.8; O2SAT 97
[2023-12-12 15:56] VITALS: BP 108/72; PULSE 61; RESP 13; O2SAT 97
== END 2023-12-12 16:15 | disposition home or self-care (01) ==
LOC: GI 11:31
PROVIDERS: ATTEND Internal Medicine Gastroenterology
DX: R13.12 Dysphagia, oropharyngeal phase (principal); R13.19 Other dysphagia; K29.50 Unspecified chronic gastritis without bleeding; K31.A0 Gastric intestinal metaplasia, unspecified; K20.90 Esophagitis, unspecified without bleeding; I10 Essential (primary) hypertension; E11.9 Type 2 diabetes mellitus without complications; E78.5 Hyperlipidemia, unspecified; Z79.82 Long term (current) use of aspirin; Z79.891 Long term (current) use of opiate analgesic; Z79.899 Other long term (current) drug therapy; Z95.1 Presence of aortocoronary bypass graft; Z95.5 Presence of coronary angioplasty implant and graft; Z86.73 Personal history of transient ischemic attack (TIA), and cerebral infarction without residual deficits; Z86.16 Personal history of COVID-19; Z98.890 Other specified postprocedural states; Z83.3 Family history of diabetes mellitus; Z84.1 Family history of disorders of kidney and ureter; Z81.8 Family history of other mental and behavioral disorders
CPT/HCPCS: 36415; 43239; 43450; 80053; 82962; 85025; 85610; 85730; 88305; 88312; 88342; J1200; J2250; J3010; J7030

== ENCOUNTER → 2024-04-08 | Outpatient (CLI) | payer OTHER ==
[2024-04-08 10:09] LABS: Urine Bacteria None Seen /hpf (None Seen)
[2024-04-08 10:16] LABS: Basophils # (auto) 0.1 10 ^3/uL (0-0.2); Basophils % (auto) 0.9 % (0.0-2.0); Eosinophils # (auto) 0.3 10 ^3/uL (0-0.8); Eosinophils % (auto) 4.2 % (0.0-7.0); Hematocrit 45.7 % (41.0-53.0); Hemoglobin 16.1 g/dL (13.5-17.5); Lymphocytes # (auto) 1.7 10 ^3/uL (0.4-5.4); Lymphocytes % (auto) 27.9 % (10.0-50.0); Mean Corpuscular Hemoglobin 33.2 pg (28.0-32.0); Mean Corpuscular Hgb Conc. 35.2 g/dL (32.0-36.0); Mean Corpuscular Volume 94.4 fL (80.0-100.0); Monocytes # (auto) 0.5 10 ^3/uL (0-1.3); Monocytes % (auto) 7.7 % (0.0-12.0); Neutrophils # (auto) 3.6 10 ^3/uL (1.6-8.6); Neutrophils % (auto) 59.3 % (37.0-80.0); Nucleated Red Blood Cells % 0.1 %; Red Blood Cells 4.84 10^6/uL (4.5-5.90); Red Cell Distribution Width 13.3 % (11.8-14.3)
[2024-04-08 10:31] LABS: Urine Blood Negative /uL (Negative); Urine Clarity Clear (Clear); Urine Color Yellow (Yellow); Urine Mucus FEW (None Seen); Urine Protein, UAD TRACE (Negative); Urine Specific Gravity 1.026 (1.001-1.035); Urine Sperm PRESENT /hpf (None Seen); Urine Urobilinogen 2 mg/dL (Negative); Urine WBC 1 /hpf (0 - 3)
[2024-04-08 10:36] LABS: Creatinine, Urine 190.16 mg/dL (30.0-125.0)
[2024-04-08 10:43] LABS: Albumin 4.3 g/dL (3.2-4.8); Alkaline Phosphatase 99 U/L (46-116); Anion Gap 4 (5-15); Aspartate Aminotransferase 13 U/L (13-40); BUN/Creatinine Ratio 12.5 (10.0-20.0); Blood Urea Nitrogen 13 mg/dL (9-23); Calcium 9.9 mg/dL (8.7-10.4); Carbon Dioxide 30 mmol/L (20-30); Chloride 105 mmol/L (98-107); Cholesterol 175 mg/dL (< 200); Glucose 157 mg/dL (74-106); HDL Cholesterol 51 mg/dL (40-59); LDL Cholesterol 105 mg/dL (< 100); Potassium 4.2 mmol/L (3.5-5.1); Sodium 139 mmol/L (136-145); Total Protein 7.3 g/dL (5.7-8.2); Triglycerides 143 mg/dL (< 150)
[2024-04-08 10:46] LABS: Alanine Aminotransferase < 9 U/L (7-40)
[2024-04-08 11:50] LABS: Erythrocyte Sedimentation Rate 12 mm/hr (0-20)
[2024-04-08 14:13] LABS: Prostate Specific Antigen 0.51 ng/mL (0.0-4.0)
[2024-04-08 14:16] LABS: Free T4 (Free Thyroxine) 1.17 ng/dL (0.89-1.76)
== END | disposition home or self-care (01) ==
LOC: LAB 09:42
PROVIDERS: ATTEND Internal Medicine
DX: I10 Essential (primary) hypertension (principal); E11.9 Type 2 diabetes mellitus without complications; I25.10 Atherosclerotic heart disease of native coronary artery without angina pectoris
CPT/HCPCS: 36415; 80053; 80061; 81001; 82043; 82570; 82607; 83036; 84153; 84439; 84443; 85025; 85652

== ENCOUNTER → 2024-06-07 | Outpatient (CLI) | payer OTHER | END | disposition home or self-care (01) | LOC: Rad HDHVI 12:11 | PROVIDERS: ATTEND Internal Medicine Cardiovascular Disease | DX: I73.9 Peripheral vascular disease, unspecified (principal); M79.606 Pain in leg, unspecified | CPT/HCPCS: 93880; 93925 ==

== ENCOUNTER → 2024-11-29 | Outpatient (CLI) | payer OTHER ==
[~2024-11-29] MED LIST changes: +MAGN100T9 PO
[2024-11-29 13:40] VITALS: BP 142/74; PULSE 65; RESP 16; O2SAT 96
--- NOTE | 2024-11-29 14:25 | DVH ---
XY CHEST TWO VIEWS ROUTINE CLINICAL HISTORY: PRE OP, pain COMPARISON: XY CHEST PORTABLE on DOS: 06/25/23 TECHNIQUE: Frontal view of the chest. FINDINGS: . The heart and mediastinal contours are grossly unremarkable. There is no evidence of pleural disease. The lungs are clear. The bony structures of the chest are intact without fracture. IMPRESSION: 1. No evidence of acute disease. Postsurgical changes in the mediastinum.
== END | disposition home or self-care (01) ==
LOC: Rad HDHVI 13:07
PROVIDERS: ATTEND Internal Medicine Cardiovascular Disease
DX: Z01.818 Encounter for other preprocedural examination (principal); R94.31 Abnormal electrocardiogram [ECG] [EKG]; R00.2 Palpitations; R07.9 Chest pain, unspecified; Z98.890 Other specified postprocedural states
CPT/HCPCS: 71046; 93005; G0463

== ENCOUNTER 2024-12-02 07:18 | Day surgery (SDC) | payer OTHER ==
[2024-11-29 15:49] LABS: Basophils # (auto) 0.1 10 ^3/uL (0-0.2); Basophils % (auto) 0.8 % (0.0-2.0); Eosinophils # (auto) 0.2 10 ^3/uL (0-0.8); Eosinophils % (auto) 2.8 % (0.0-7.0); Hematocrit 45.2 % (41.0-53.0); Hemoglobin 15.8 g/dL (13.5-17.5); Lymphocytes % (auto) 26.4 % (10.0-50.0); Mean Corpuscular Hemoglobin 32.2 pg (28.0-32.0); Mean Corpuscular Hgb Conc. 34.9 g/dL (32.0-36.0); Mean Corpuscular Volume 92.4 fL (80.0-100.0); Monocytes # (auto) 0.6 10 ^3/uL (0-1.3); Monocytes % (auto) 7.7 % (0.0-12.0); Neutrophils # (auto) 4.6 10 ^3/uL (1.6-8.6); Neutrophils % (auto) 62.3 % (37.0-80.0); Nucleated Red Blood Cells % 0.1 %; Platelet Count (auto) 195 10^3/uL (140-450); Red Blood Cells 4.89 10^6/uL (4.5-5.90); Red Cell Distribution Width 13.4 % (11.8-14.3); White Blood Cell 7.5 10^3/uL (4.4-10.8)
[2024-11-29 16:08] LABS: INR 0.98 (0.9-1.15); Partial Thromboplastin Time 26.8 SEC (24.5-34.5); Prothrombin Time 10.4 sec (9.3-11.8)
[2024-11-29 16:28] LABS: Anion Gap 7 (5-15); Carbon Dioxide 28 mmol/L (20-31); Chloride 104 mmol/L (98-107); Sodium 139 mmol/L (136-145)
[2024-11-29 16:29] LABS: Calcium 9.9 mg/dL (8.7-10.4)
[2024-11-29 16:34] LABS: Blood Urea Nitrogen 13 mg/dL (9-23)
[2024-11-29 16:38] LABS: Glucose 191 mg/dL (74-106)
[~2024-12-02] VITALS: Ht 170.2 cm; Wt 89.4 kg
[~2024-12-02 07:18] MED LIST changes: -PANT40TA2 PO
[2024-12-02] MEDS ORDERED: IOHEXOL 350 MG/ML 100ML IJ ONE (10:26)
[2024-12-02] MEDS ORDERED: HEPARIN IN NS 1000Units/500mL 1,500 ML ONE (10:26)
[2024-12-02] MEDS ORDERED: ANGIOMAX 250 MG VIAL IV ONE (10:32)
[2024-12-02] MEDS ORDERED: MIDAZOLAM HCL 2MG/2ML 2ml VIAL (1mg/ml) ONE (10:32)
[2024-12-02] MEDS ORDERED: fentaNYL CITRATE 100 MCG/2 ML VL ONE (10:32)
[2024-12-02] MEDS ORDERED: LIDOCAINE 2%HCL (LOCAL ANESTH.) INJ 20ML MDV ONE (10:33)
--- NOTE | 2024-12-02 12:01 | DVHHP ---
ADMIT DATE: 12/02/2024 HISTORY OF PRESENT ILLNESS: The patient who is 74 years old with history of organic heart disease. * Coronary artery disease. * History of coronary artery bypass grafting in 2015, MCCAIN to the LAD, saphenous vein graft to the OM, and saphenous vein graft to the PDA. * History of angioplasty with stent placement in 2015 as well. * Diabetes with diabetic neuropathy, vasculopathy, nephropathy. * Hypertension. * Hyperlipidemia. The patient now with abnormal stress test, chest pain and shortness of breath. The patient is now to undergo coronary angiography. Risks and benefits were explained to the patient. The patient understands and agrees. He denies any fever, chills, melena, hematochezia, hematemesis, hemoptysis. No history of hematuria. Denies any recent travel outside the country. He is COVID negative. Chest x-ray shows unremarkable as well. The patient also denies any connective tissue disease disorder such as lupus or rheumatoid arthritis. Denies any inflammatory bowel disease. No history of any irritable bowel syndrome. Denies any tobacco use. No history of COPD. Positive for neurological deficit. The patient had a stroke following coronary artery bypass grafting. PHYSICAL EXAMINATION: VITAL SIGNS: Blood pressure is 128/85, pulse of 70, O2 saturation 96% on room air. HEENT: Pupils are reactive. Funduscopic exam shows no AV nicking, no exudates, no papilledema. Sclerae are anicteric. Extraocular muscles are intact. Tympanic membranes are negative. Oral mucosa moist. Posterior pharynx without any exudates. NECK: No cervical adenopathy, no supraclavicular adenopathy. No JVD appreciated. Carotid pulses are 2+ symmetrical, normal upstroke and contour. PULMONARY: Clear to auscultation in all lung deutsch. Tympanic to percussion. No wheezing, no egophony. No rhonchi. CARDIOVASCULAR: Regular rate. PMI is not displaced. No S3, no S4 noted. There is a 2/6 systolic murmur along the left sternal border without any radiation. ABDOMEN: Soft, nontender. Normal bowel sounds. No epigastric tenderness, no suprapubic tenderness, no CVA tenderness. Liver approximately 5 cm by percussion. Stool guaiac is negative. NEUROLOGIC: The patient currently, no focality to the examination as well. ASSESSMENT AND PLAN: Thus, the patient with abnormal stress test, increasing shortness of breath, intermittent episodes of chest pain. The patient is now to undergo coronary angiography to define coronary anatomy. We will make further recommendations after the angiogram. Jason Herrera MD SA/NICK TID: [id number] RECEIPT: [id number]
--- NOTE | 2024-12-02 12:01 | DVHDS ---
DATE OF DISCHARGE: 12/02/2024 DISCHARGE DIAGNOSES: * The patient had coronary angiography shows patent MCCAIN to the LAD. * [place] LAD was occluded. * Patent saphenous vein graft to the circumflex. Ostial circumflex had a 90% narrowing with heavy calcification. * Right coronary artery was occluded. * Saphenous vein graft to the RCA was occluded. However, this was a nondominant vessel. * Left ventricular function was preserved with an estimated EF greater than 55%. LVEDP of 19 mmHg. At this time, continue all current indication. No catheter-based intervention was warranted. Stable at the time of discharge. DISPOSITION: Home. ACTIVITY: As instructed. DIET: 2 gram sodium diet. Jason Herrera MD SA/YAZMIN/MARSHA TID: [id number] RECEIPT: [id number]
--- NOTE | 2024-12-03 02:01 | DVHOP ---
DATE OF SURGERY: 12/02/2024 PROCEDURES PERFORMED: * Selective left and right coronary angiography. * Saphenous vein graft x2, MCCAIN to , angiography of the subclavian and left internal mammary artery. * Ventriculogram. * Right iliac angiography. * Conscious sedation. DESCRIPTION OF PROCEDURE: The patient was prepped and draped under sterile condition. Xylocaine 1% used to anesthetize the right groin. Using Cook needle, right femoral artery was engaged with Seldinger technique, a 6-Comoran sheath into the right femoral artery. Using 6-[place]or[place] JL4 catheter and 6-[place]or[place] JR4 catheter, selective left and right coronary angiographies were performed. Then, using 6-[place]or[place] JR4 catheter, angiography of the saphenous vein graft, subclavian, and left internal mammary artery was performed as well. Using 6-[place]oran pigtail catheter, ventriculogram. Total contrast used 70 mL Optiray. Total fluoro time was 3 minutes. The patient also had FFR of the circumflex artery, but we elected not to do the intervention since the patient's graft was patent. FFR ____ 0.77. RESULTS: * Left main patent. * Left anterior descending artery was occluded. * MCCAIN to the LAD was patent. * Circumflex ostial had a 90% narrowing with an FFR of 0.77. * Saphenous vein graft to the circ was patent. * Right coronary artery nondominant vessel was occluded. * Saphenous vein graft to the PDA was occluded. * Left ventricular function was preserved with an estimated EF around 55%-60% with an LVEDP of 18 mmHg with no gradient across the aortic valve. Thus, the patient with coronary artery disease, preserved left ventricular ejection fraction, mild diastolic dysfunction secondary to elevated LVEDP. MCCAIN to the LAD was patent. Saphenous vein graft to the circumflex was patent. Saphenous vein graft to the PDA was occluded. At this time, conservative medical management, aggressive risk modification. However, no catheter-based intervention is warranted. Jason Herrera MD SA/YAZMIN/KAYLA TID: [id number] RECEIPT: [id number]
== END 2024-12-02 14:00 | disposition home or self-care (01) ==
LOC: CATH 07:18
PROVIDERS: ATTEND Internal Medicine Cardiovascular Disease
DX: I25.10 Atherosclerotic heart disease of native coronary artery without angina pectoris (principal); R94.39 Abnormal result of other cardiovascular function study; I10 Essential (primary) hypertension; E11.40 Type 2 diabetes mellitus with diabetic neuropathy, unspecified; E11.21 Type 2 diabetes mellitus with diabetic nephropathy; E78.5 Hyperlipidemia, unspecified; Z79.82 Long term (current) use of aspirin; Z79.84 Long term (current) use of oral hypoglycemic drugs; Z79.891 Long term (current) use of opiate analgesic; Z79.899 Other long term (current) drug therapy; Z95.1 Presence of aortocoronary bypass graft; Z95.5 Presence of coronary angioplasty implant and graft; Z81.0 Family history of intellectual disabilities; Z83.3 Family history of diabetes mellitus; Z84.1 Family history of disorders of kidney and ureter
CPT/HCPCS: 36415; 80048; 85025; 85610; 85730; 93459; 93571; C1760; C1769; C1887; C1894; J1644; J2250; J3010; Q9967; 99152

== ENCOUNTER 2024-12-04 00:36 | Emergency (ER) | payer OTHER ==
[~2024-12-04] VITALS: Ht 172.7 cm; Wt 88.5 kg
[2024-12-04 00:55] VITALS: TEMP 98.7; O2SAT 97
[2024-12-04 01:05] LABS: Basophils # (auto) 0.1 10 ^3/uL (0-0.2); Basophils % (auto) 0.7 % (0.0-2.0); Eosinophils # (auto) 0.2 10 ^3/uL (0-0.8); Eosinophils % (auto) 2.6 % (0.0-7.0); Hematocrit 46.1 % (41.0-53.0); Hemoglobin 15.9 g/dL (13.5-17.5); Lymphocytes # (auto) 2.9 10 ^3/uL (0.4-5.4); Mean Corpuscular Hemoglobin 32.5 pg (28.0-32.0); Mean Corpuscular Hgb Conc. 34.5 g/dL (32.0-36.0); Mean Corpuscular Volume 94.1 fL (80.0-100.0); Monocytes # (auto) 0.9 10 ^3/uL (0-1.3); Monocytes % (auto) 9.9 % (0.0-12.0); Neutrophils % (auto) 54.8 % (37.0-80.0); Platelet Count (auto) 186 10^3/uL (140-450); Red Cell Distribution Width 13.2 % (11.8-14.3); White Blood Cell 9.2 10^3/uL (4.4-10.8)
[2024-12-04 01:14] LABS: Chloride 101 mmol/L (98-107); Potassium 4.3 mmol/L (3.5-5.1); Sodium 136 mmol/L (136-145)
[2024-12-04 01:15] LABS: Anion Gap 8 (5-15); Carbon Dioxide 27 mmol/L (20-31)
[2024-12-04 01:20] LABS: BUN/Creatinine Ratio 18.2 (10.0-20.0); Blood Urea Nitrogen 22 mg/dL (9-23)
[2024-12-04 01:24] LABS: Glucose 192 mg/dL (74-106)
[2024-12-04] MEDS: KETOROLAC TROMETH 60MG/2ML VIAL IM ONE (01:26)
--- NOTE | 2024-12-04 01:38 | DVH ---
CHEST RADIOGRAPH Indication: Left-sided chest pain Technique: Single frontal view of the chest was obtained COMPARISON: XY CHEST PORTABLE on DOS: 11/29/24 FINDINGS: Lines and Tubes: None Lungs: Clear Pleura: No effusion. No pneumothorax. Cardiomediastinal contours: Unremarkable Bones: Unremarkable. Sternotomy. IMPRESSION: No acute disease.
[2024-12-04] MEDS ORDERED: IBUP-1455 PO (02:32)
[2024-12-04] MEDS ORDERED: ACET500T58 PO (02:32)
--- NOTE | 2024-12-04 02:33 | ED.PDOC ---
History of Present Illness HPI Comments This patient is a pleasant Armenian-speaking only 74-year-old male who arrives the ED tonight for evaluation of left-sided chest pain concerns that came on earlier tonight while watching TV and have slightly reduced at time of evaluation. Patient states when he pain was sharp and came on quickly, went away after a few minutes, but then returned again. Patient complains of the pain being stabbing in nature and point specific. Patient denies any fever nausea or vomiting. Patient says talus cardiac history occluding CABG procedure and stent placement. Chief Complaint: Chest Pain Time Seen by MD: 00:41 Primary Care Provider: NONE Reviewed Notes: Nurses Notes Allergies: Coded Allergies: NO KNOWN ALLERGIES (Unverified , 11/28/09) Home Meds Active Scripts Aspirin (Aspir-Low) 81 Mg Tab, 81 MG PO DAILY for 30 Days, #30 MG Prov:VINH LINARES MD 06/27/23 Reported Medications Magnesium Bisglycinate (Mag Glycinate) 100 Mg Tab, 100 MG PO, TAB 11/29/24 Cilostazol (Cilostazol) 100 Mg Tab, 100 MG PO BID for CIRCULATION, TAB 12/10/23 Tramadol Hcl (Tramadol Hcl) 50 Mg Tab, 1 TAB PO BIDP PRN for PAIN SCALE 7 THRU 10 06/25/23 Glipizide (Glipizide) 5 Mg Tab, 0.5 TAB PO DAILY for DIABETES 06/25/23 Lisinopril (Lisinopril) 20 Mg Tab, 1 TAB PO BID for HTN 06/25/23 Atorvastatin Calcium (ATORVASTATIN CALCIUM) 20 Mg Tab, 20 MG PO DAILY, TAB 02/14/15 Information Source: Patient, Spouse Mode of Arrival: Ambulatory Severity: Moderate Timing: Hours Duration: Hours Prehospital treatment: None Past Medical History PAST MEDICAL HISTORY: Arthritis, CVA, DM, HTN Surgical History: CABG, PTCA Family History Family History: Reviewed,noncontributory to illness Social History Smoker: Non-Smoker Alcohol: Denies ETOH Use Drugs: Denies Drug Use Lives In: Home Constitutional: denies: chills, diaphoresis, fatigue, fever, malaise, sweats, weakness, others EENTM: denies: blurred vision, double vision, ear bleeding, ear discharge, ear drainage, ear pain, ear ringing, eye pain, eye redness, hearing loss, mouth pain, mouth swelling, nasal discharge, nose bleeding, nose congestion, nose pain, photophobia, tearing, throat pain, throat swelling, voice changes, others Respiratory: denies: cough, hemoptysis, orthopnea, SOB at rest, shortness of breath, SOB with excertion, stridor, wheezing, others Cardiovascular: reports: chest pain; denies: dizzy spells, diaphoresis, Dyspnea on exertion, edema, irregular heart beat, left arm pain, lightheadedness, palpitations, PND, syncope, others Gastrointestinal: denies: abdomen distended, abdominal pain, blood streaked bowels, constipated, diarrhea, dysphagia, difficulty swallowing, hematemesis, melena, nausea, poor appetite, poor fluid intake, rectal bleeding, rectal pain, vomiting, others Genitourinary: denies: burning, dysuria, flank pain, frequency, hematuria, incontinence, penile discharge, penile sore, pain, testicle pain, testicle swelling, urgency, others Neurological: denies: dizziness, fainting, headache, left sided numbness, left sided weakness, numbness, paresthesia, pre-existing deficit, right sided numbness, right sided weakness, seizure, speech problems, tingling, tremors, w eakness, others Musculoskeletal: denies: back pain, gout, joint pain, joint swelling, muscle pain, muscle stiffness, neck pain, others Integumetry: denies: bruises, change in color, change in hair/nails, dryness, laceration, lesions, lumps, rash, wounds, others Allergic/Immunocompromised: denies: Difficulty Healing, Frequent Infections, Hives, Itching, others Hematologic/Lymphatic: denies: anemia, blood clots, easy bleeding, easy bruising, swollen glands, others Endocrine: denies: excessive hunger, excessive sweating, excessive thirst, excessive urination, flushing, intolerance to cold, intolerance to heat, unexplained weight gain, unexplained weight loss, others Psychiatric: denies: anxiety, bipolar disorder, depression, hopeless, panic disorder, schizophrenia, sleepless, suicidal, others Physical Exam General Appearance: Moderate Distress (Wocv-ii-ijkbyize distress due to left- sided chest pain concerns.), Normal HEENT: Normal ENT Inspection, Pharynx Normal, TMs Normal Neck: Full Range of Motion, Non-Tender, Normal, Normal Inspection Respiratory: Lungs Clear, No Accessory Muscle Use, No Respiratory Distress, Normal Breath Sounds, Other (Patient complains of point specific pain between ribs four five and five and six in the mid clavicular line. No signs of trauma. No edema or ecchymosis.) Cardiovascular: No Edema, No JVD, No Murmur, No Gallop, Normal Peripheral Pulses, Regular Rate/Rhythm Breast Exam: Deferred Gastrointestinal: No Organomegaly, Non Tender, No Pulsatile Mass, Normal Bowel Sounds, Soft Genitalia: Deferred Pelvic: Deferred Rectal: Deferred Extremities: No calf tenderness, Normal capillary refill, Normal inspection, Normal range of motion, Non-tender, No pedal edema Neurologic: Alert, pointer helper II-XII nml as Tested, No Motor Deficits, Normal Affect, Normal Mood, No Sensory Deficits Cerebellar Function: Normal Reflexes: Normal Skin: Dry, Normal Color, Warm Lymphatic: No Adenopathy Was a procedure done? Was a procedure done?: No Differential Dx Considerations may include: Acute cardiac event, [place], costochondritis, electrolyte abnormality X-Ray, Labs, Meds, VS Vital Signs Date Time Temp Pulse Resp B/P (MAP) Pulse Ox O2 Delivery O2 Flow Rate FiO2 12/04/24 01:41 63 12/04/24 00:55 98.7 64 15 113/75 (88) 98 98.7 12/04/24 00:55 97 Room Air* 0 21 12/04/24 00:41 73 12/04/24 00:39 98.4 71 20 146/79 (101) 98 98.4 Lab Test 12/04/24 01:37 12/04/24 00:47 Range/Units Troponin I High Sensitivity 4 4 </=54 ng/L White Blood Count 9.2 4.4-10.8 10^3/uL Red Blood Count 4.90 4.5-5.90 10^6/uL Hemoglobin 15.9 13.5-17.5 g/dL Hematocrit 46.1 41.0-53.0 % Mean Corpuscular Volume 94.1 80.0-100.0 fL Mean Corpuscular Hemoglobin 32.5 H 28.0-32.0 pg Mean Corpuscular Hemoglobin Concent 34.5 32.0-36.0 g/dL Red Cell Distribution Width 13.2 11.8-14.3 % Platelet Count 186 140-450 10^3/uL Mean Platelet Volume 8.8 6.9-10.8 fL Neutrophils (%) (Auto) 54.8 37.0-80.0 % Lymphocytes (%) (Auto) 32.0 10.0-50.0 % Monocytes (%) (Auto) 9.9 0.0-12.0 % Eosinophils (%) (Auto) 2.6 0.0-7.0 % Basophils (%) (Auto) 0.7 0.0-2.0 % Neutrophils # (Auto) 5.0 1.6-8.6 10 ^3/uL Lymphocytes # (Auto) 2.9 0.4-5.4 10 ^3/uL Monocytes # (Auto) 0.9 0-1.3 10 ^3/uL Eosinophils # (Auto) 0.2 0-0.8 10 ^3/uL Basophils # (Auto) 0.1 0-0.2 10 ^3/uL Nucleated Red Blood Cells 0.0 % Sodium Level 136 136-145 mmol/L Potassium Level 4.3 3.5-5.1 mmol/L Chloride Level 101 98-107 mmol/L Carbon Dioxide Level 27 20-31 mmol/L Anion Gap 8 5-15 Blood Urea Nitrogen 22 9-23 mg/dL Creatinine 1.21 0.700-1.30 mg/dL Glomerular Filtration Rate Calc 63 >90 mL/min BUN/Creatinine Ratio 18.2 10.0-20.0 Serum Glucose 192 H 74-106 mg/dL Calcium Level 10.0 8.7-10.4 mg/dL Current Medications Medications (Trade) Dose Ordered Sig/Tiffanie Route Start Time Stop Time Status Last Admin Ketorolac Tromethamine (Toradol Injection) 15 mg ONCE ONCE IM 12/04/24 01:00 12/04/24 01:01 DC 12/04/24 01:26 X-Ray, Labs, Meds, VS Comment All studies performed the ED were evaluated by me personally. EKG revealed a sinus rhythm with a rate of 63. Right axis deviation and nonspecific T-wave abnormalities on anterior lateral leads noted. OR interval of 164 and QT interval 395. Relatively unremarkable EKG. Laboratories were unremarkable for any systemic process. Chest x-ray was unremarkable for any consolidation or fibrotic disease. Patient appears to be suffering from a costochondritis due to the point specific pain evaluation. Advised patient utilize anti-inflammatory as directed and as needed. Time of 1ST Reevaluation: Reevaluation 1ST: Improved Consultation: PCP Patient Education/Counseling: Diagnosis, Treatment Family Education/Counseling: Diagnosis, Treatment Departure 1 Departure Time of Disposition: Impression: Primary Impression: Costochondritis Disposition: HOME / SELF CARE / HOMELESS Condition: Stable Additional Instructions: Advise utilizing anti-inflammatory as needed for symptomatic pain relief. e-Prescriptions Acetaminophen (Acetaminophen) 500 Mg Tab 500 MG PO Q4HP PRN, #30 TAB Prov: DECLAN TREVIÑO PAC 12/04/24 Ibuprofen Micronized (Ibuprofen) 800 Mg Tab 800 MG PO Q8HP PRN, #20 TAB Prov: DECLAN TREVIÑO PAC 12/04/24 Discharged With: Self, Spouse Critical Care Note Critical Care Time?: No Stability Stability form required: No Heart Score Heart Score: Heart Score Response (Comments) Value History Slightly Suspicious 0 EKG Repolarization Disturb 1 Age >65 2 Risk Factors 1 or 2 risk factors 1 Troponin Normal limit 0 Total 4 DECLAN TREVIÑO PAC Dec 04, 2024 02:33
[2024-12-04 03:11] VITALS: BP 130/86; PULSE 60; RESP 12; O2SAT 98
--- NOTE | 2024-12-04 07:01 | ECG ---
[facility] Test Date: 2024-12-04 Test Time: 01:41:20 Pat Name: SUDHIR CUNHA Department: ED Room: Gender: M Diploma Maker: ANIBAL : 1950 Requested By: JOSÉ FRYE Order Number: [id number] Reading MD: Measurements Intervals [place] Rate: 63 P: 71 [place]: 164 QRS: 97 QRSD: 91 T: 72 QT: 395 QTc: 405 Interpretive Statements Sinus rhythm Right axis deviation Nonspecific T abnrm, anterolateral leads Please click the below link to view image of tracing.
== END 2024-12-04 03:30 | disposition home or self-care (01) ==
LOC: ER 00:36
DX: M94.0 Chondrocostal junction syndrome [Tietze] (principal); R07.89 Other chest pain; I10 Essential (primary) hypertension; E11.9 Type 2 diabetes mellitus without complications; M19.90 Unspecified osteoarthritis, unspecified site; Z79.82 Long term (current) use of aspirin; Z79.84 Long term (current) use of oral hypoglycemic drugs; Z79.899 Other long term (current) drug therapy
CPT/HCPCS: 36415; 71045; 80048; 84484; 85025; 93005; 96372; 99285; J1885

== ENCOUNTER → 2024-12-09 | Outpatient (CLI) | payer OTHER ==
[~2024-12-09] MED LIST changes: +ACET500T58 PO; +IBUP-1455 PO
[2024-12-09 08:10] LABS: Basophils # (auto) 0 10 ^3/uL (0-0.2); Basophils % (auto) 0.6 % (0.0-2.0); Eosinophils # (auto) 0.2 10 ^3/uL (0-0.8); Eosinophils % (auto) 2.3 % (0.0-7.0); Hematocrit 48.1 % (41.0-53.0); Hemoglobin 16.4 g/dL (13.5-17.5); Lymphocytes # (auto) 1.9 10 ^3/uL (0.4-5.4); Lymphocytes % (auto) 26.4 % (10.0-50.0); Mean Corpuscular Hemoglobin 32.1 pg (28.0-32.0); Mean Corpuscular Hgb Conc. 34.2 g/dL (32.0-36.0); Mean Corpuscular Volume 93.9 fL (80.0-100.0); Monocytes # (auto) 0.6 10 ^3/uL (0-1.3); Monocytes % (auto) 8.1 % (0.0-12.0); Neutrophils # (auto) 4.5 10 ^3/uL (1.6-8.6); Neutrophils % (auto) 62.6 % (37.0-80.0); Nucleated Red Blood Cells % 0.1 %; Platelet Count (auto) 194 10^3/uL (140-450); Red Blood Cells 5.12 10^6/uL (4.5-5.90); Red Cell Distribution Width 12.8 % (11.8-14.3); White Blood Cell 7.3 10^3/uL (4.4-10.8)
[2024-12-09 08:23] LABS: Alanine Aminotransferase 12 U/L (7-40); Anion Gap 10 (5-15); BUN/Creatinine Ratio 16.2 (10.0-20.0); Blood Urea Nitrogen 19 mg/dL (9-23); Carbon Dioxide 26 mmol/L (20-31); Chloride 101 mmol/L (98-107); Potassium 4.5 mmol/L (3.5-5.1); Sodium 137 mmol/L (136-145)
[2024-12-09 08:24] LABS: Aspartate Aminotransferase 14 U/L (13-40); HDL Cholesterol 54 mg/dL (40-59)
[2024-12-09 08:26] LABS: Albumin 4.9 g/dL (3.2-4.8); Alkaline Phosphatase 118 U/L (46-116); Bilirubin, Total 2.5 mg/dL (0.2-1.0); Calcium 10.5 mg/dL (8.7-10.4); Cholesterol 221 mg/dL (< 200); Glucose 210 mg/dL (74-106); LDL Cholesterol 154 mg/dL (< 100); Triglycerides 173 mg/dL (< 150)
[2024-12-09 09:05] LABS: Prostate Specific Antigen 0.54 ng/mL (0.0-4.0)
[2024-12-09 09:09] LABS: Free T4 (Free Thyroxine) 1.12 ng/dL (0.89-1.76)
[2024-12-09 09:35] LABS: Erythrocyte Sedimentation Rate 14 mm/hr (0-20)
[2024-12-09 16:08] LABS: Urine Blood Negative /uL (Negative); Urine Clarity Clear (Clear); Urine Color Yellow (Yellow); Urine Mucus FEW (None Seen); Urine Protein, UAD Negative (Negative); Urine Specific Gravity 1.024 (1.001-1.035); Urine Squamous Epithelial Cell FEW /hpf (<5); Urine Urobilinogen Normal (Negative); Urine WBC 1 /HPF (0-3)
== END | disposition home or self-care (01) ==
LOC: LAB 07:23
PROVIDERS: ATTEND Internal Medicine
DX: E11.40 Type 2 diabetes mellitus with diabetic neuropathy, unspecified (principal); I10 Essential (primary) hypertension; L40.50 Arthropathic psoriasis, unspecified; Z79.899 Other long term (current) drug therapy
CPT/HCPCS: 36415; 80053; 80061; 81001; 82607; 83036; 84153; 84439; 84443; 85025; 85652

== ENCOUNTER → 2025-02-07 | Day surgery (SDC) | payer OTHER ==
[2025-02-03 14:23] LABS: INR 0.97 (0.9-1.15); Partial Thromboplastin Time 27.3 SEC (24.5-34.5); Prothrombin Time 10.3 sec (9.3-11.8)
[2025-02-03 14:42] LABS: Chloride 101 mmol/L (98-107); Potassium 4.5 mmol/L (3.5-5.1); Sodium 136 mmol/L (136-145)
[2025-02-03 14:45] LABS: Basophils # (auto) 0.1 10 ^3/uL (0-0.2); Basophils % (auto) 0.7 % (0.0-2.0); Eosinophils # (auto) 0.1 10 ^3/uL (0-0.8); Eosinophils % (auto) 1.7 % (0.0-7.0); Hematocrit 43.8 % (41.0-53.0); Hemoglobin 15.6 g/dL (13.5-17.5); Lymphocytes # (auto) 1.4 10 ^3/uL (0.4-5.4); Lymphocytes % (auto) 18.6 % (10.0-50.0); Mean Corpuscular Hemoglobin 32.2 pg (28.0-32.0); Mean Corpuscular Hgb Conc. 35.5 g/dL (32.0-36.0); Mean Corpuscular Volume 90.7 fL (80.0-100.0); Monocytes # (auto) 0.6 10 ^3/uL (0-1.3); Neutrophils # (auto) 5.1 10 ^3/uL (1.6-8.6); Nucleated Red Blood Cells % 0.1 %; Platelet Count (auto) 199 10^3/uL (140-450); Red Blood Cells 4.83 10^6/uL (4.5-5.90); Red Cell Distribution Width 13.3 % (11.8-14.3); White Blood Cell 7.3 10^3/uL (4.4-10.8)
[2025-02-03 14:46] LABS: Anion Gap 9 (5-15); Calcium 9.3 mg/dL (8.7-10.4); Carbon Dioxide 26 mmol/L (20-31)
[2025-02-03 14:51] LABS: Alkaline Phosphatase 111 U/L (46-116); BUN/Creatinine Ratio 14.9 (10.0-20.0); Blood Urea Nitrogen 15 mg/dL (9-23)
[2025-02-03 14:52] LABS: Total Protein 7.2 g/dL (5.7-8.2)
[2025-02-03 14:53] LABS: Alanine Aminotransferase 12 U/L (7-40); Albumin 4.4 g/dL (3.2-4.8); Aspartate Aminotransferase 14 U/L (0-34)
[2025-02-03 14:56] LABS: Bilirubin, Total 1.7 mg/dL (0.2-1.0); Glucose 230 mg/dL (74-106)
[~2025-02-07] VITALS: Ht 175.3 cm; Wt 88.9 kg
[~2025-02-07] MED LIST changes: +FLUMAZENIL 0.1 MG/ML INJ 10ML MDV IV ONE; +NALOXONE HCL 0.4 MG/ML VIAL ONE; +SODIUM CHLORIDE LOCK 10 ML ONE; +fentaNYL CITRATE 100 MCG/2 ML VL ONE
[2025-02-07 16:33] VITALS: PULSE 90; RESP 12; O2SAT 97
[2025-02-07] MEDS: fentaNYL CITRATE 100 MCG/2 ML VL ONE (16:36)
[2025-02-07] MEDS: MIDAZOLAM HCL 5 MG/ML-1ML VIAL ONE (16:36)
[2025-02-07] MEDS: diphenhdrAMINE HCL 50 MG/1 ML VL ONE (16:36)
--- NOTE | 2025-02-07 16:54 | DVHOP2 ---
Operative Report DATE OF OPERATION: 02/07/25 PROCEDURE: Diagnostic Colonoscopy . PREOPERATIVE INDICATION: The patient is a 74 -year-old male undergoing colonoscopy for colon cancer screening POSTOPERATIVE DIAGNOSES: 1. Mild sigmoid diverticular disease 2. Trace internal hemorrhoids otherwise essentially complete and normal colonoscopy examination up to the cecum and terminal ileum PROCEDURE PERFORMED BY: Chito Perkins M.D. SCOPE: Olympus videocolonoscope. ASA CLASS: 3 PREOPERATIVE MEDICATIONS: Versed 2 mg, Fentanyl 75 mcg, Benadryl 50 mg PROCEDURE IN DETAIL: After obtaining an informed consent, the patient was placed on left lateral decubitus position. He was then sedated with the above medications. A rectal examination was performed that was normal. The colonoscope was then passed through the anus into the rectosigmoid and through the descending, transverse, and ascending colon up to the cecum with visualization of the appendiceal orifice, base of the cecum and the ileocecal valve. The colonoscope was then withdrawn. The distal 5 cm of the terminal ileum were normal No polyps or masses were seen. There was no colitis. There was mild sigmoid diverticular disease with a couple of isolated pockets On retroflexion and straight on view he had trace internal hemorrhoids The patient tolerated the procedure well without difficulty. WITHDRAWAL TIME: 7 minutes QUALITY OF THE PREP: [place] Bowel Prep score: 9. COMPLICATIONS : None SPECIMENS: None DISPOSITION: Stable D/C to home PLAN: 1. Repeat colonoscopy in 10 years 2. Resume GI soft diet advance as tolerated 3. Increase fluid and fiber intake 4. Outpatient follow up with me in 4-6 weeks to review results and discuss further management CHITO PERKINS MD Feb 07, 2025 16:54
[2025-02-07 16:56] VITALS: PULSE 73; RESP 12; TEMP 97.2; O2SAT 98
[2025-02-07 17:12] VITALS: PULSE 69; RESP 12; O2SAT 100
[2025-02-07 18:11] VITALS: BP 129/89; PULSE 69; RESP 12; O2SAT 96
== END | disposition home or self-care (01) ==
LOC: GI 13:45
PROVIDERS: ATTEND Internal Medicine Gastroenterology
DX: Z12.11 Encounter for screening for malignant neoplasm of colon (principal); K57.30 Diverticulosis of large intestine without perforation or abscess without bleeding; K64.8 Other hemorrhoids; I10 Essential (primary) hypertension; E11.9 Type 2 diabetes mellitus without complications; K21.9 Gastro-esophageal reflux disease without esophagitis; Z95.1 Presence of aortocoronary bypass graft; Z98.890 Other specified postprocedural states; Z83.3 Family history of diabetes mellitus; Z86.73 Personal history of transient ischemic attack (TIA), and cerebral infarction without residual deficits; Z86.19 Personal history of other infectious and parasitic diseases; Z79.82 Long term (current) use of aspirin; Z79.899 Other long term (current) drug therapy
CPT/HCPCS: 36415; 45378; 80053; 82962; 85025; 85610; 85730; J1200; J2250; J3010; J7030; 99152

== ENCOUNTER → 2025-03-03 | Outpatient (CLI) | payer OTHER ==
[~2025-03-03] MED LIST changes: -FLUMAZENIL 0.1 MG/ML INJ 10ML MDV IV ONE; -NALOXONE HCL 0.4 MG/ML VIAL ONE; -SODIUM CHLORIDE LOCK 10 ML ONE; -fentaNYL CITRATE 100 MCG/2 ML VL ONE
--- NOTE | 2025-03-07 14:22 | DVHSR ---
APPROVED REPORT EXAM: Two-dimensional and M-mode echocardiogram with Doppler and color Doppler. DIMENSIONS LVDd4.5 (3.8-5.7cm)LA (2D)3.1 (1.9-4.0cm)Aortic Root3.7 (2.0-3.7cm) LVDs3.5 (2.5-4.0cm)LA (MM) (1.9-4.0cm)Aortic Cusp Rrv060.8 (1.5-2.0cm) EF (%) 43.7 (55-70%)Rt. Atrium3.7 (1.9-4.0cm)Asc. Aorta3.6 cm IVSd1.0 (0.7-1.1cm)RV (D)3.3 (1.8-2.4cm) PWd1.0 (0.7-1.1cm) Mitral Valve MitralMitral Stenosis E wave0.78m/sMV Mean GR.mmHg A wave1.05m/sMV Peak GR.42mmHg E/A ratio0.72D MVAcm2 DECEL [id number] 1/2 [place] Aortic Valve Aortic ValveAortic Stenosis V10.86m/Sandra Mean GR.1mmHg V20.78m/Sandra Peak GR.2mmHg Pulmonic Valve V20.56m/s Tricuspid Valve TR Velocity2.10m/s [id number] LEFT VENTRICLE The Ejection Fraction is 35-45%. ATRIA The left atrial size is normal. The right atrium size is normal. MITRAL VALVE The mitral valve is normal in structure and function. Mitral regurgitation is mild. PULMONIC VALVE The pulmonic valve is not well visualized. TRICUSPID VALVE The tricuspid valve is grossly normal. There is trace tricuspid regurgitation. AORTIC VALVE The aortic valve opens well. There is trace aortic regurgitation. GREAT VESSELS The aortic root is normal size. PERICARDIAL EFFUSION There is no pericardial effusion. Conclusion EF 40%
== END | disposition home or self-care (01) ==
LOC: Rad HDHVI 10:51
PROVIDERS: ATTEND Internal Medicine Cardiovascular Disease
DX: I34.0 Nonrheumatic mitral (valve) insufficiency (principal); I73.9 Peripheral vascular disease, unspecified
CPT/HCPCS: 93306

== ENCOUNTER 2025-05-24 06:19 | Outpatient (CLI) | payer OTHER ==
[2025-05-24 07:44] LABS: Cholesterol 207 mg/dL (< 200); HDL Cholesterol 48 mg/dL (40-59); Triglycerides 194 mg/dL (< 150)
[2025-05-24 08:58] LABS: Free T4 (Free Thyroxine) 1.17 ng/dL (0.89-1.76)
== END 2025-05-24 17:00 | disposition home or self-care (01) ==
LOC: LAB 06:19
PROVIDERS: ATTEND Internal Medicine
DX: E78.00 Pure hypercholesterolemia, unspecified (principal); I25.10 Atherosclerotic heart disease of native coronary artery without angina pectoris
CPT/HCPCS: 36415; 80061; 82607; 83036; 84439; 84443

== ENCOUNTER 2025-07-23 08:44 | Emergency (ER) | payer OTHER ==
[~2025-07-23] VITALS: Ht 175.3 cm; Wt 87.0 kg
[2025-07-23 08:46] VITALS: BP 186/97; RESP 18; TEMP 97.5; O2SAT 97
--- NOTE | 2025-07-23 08:53 | ECG ---
[facility] Test Date: 2025-07-23 Test Time: 08:51:49 Pat Name: SUDHIR CUNHA Department: ED Room: Gender: M Top Closer: GARRET : 1950 Requested By: ARASELI FARLEY Order Number: [id number] Reading MD: Measurements Intervals [place] Rate: 84 P: 72 [place]: 155 QRS: -69 QRSD: 88 T: 76 QT: 371 QTc: 439 Interpretive Statements Sinus rhythm LAD, consider left anterior fascicular block Consider anterior infarct Please click the below link to view image of tracing.
[2025-07-23 09:14] LABS: Hematocrit 48.1 % (41.0-53.0); Hemoglobin 16.9 g/dL (13.5-17.5); Mean Corpuscular Hemoglobin 32.3 pg (28.0-32.0); Mean Corpuscular Volume 91.8 fL (80.0-100.0); Nucleated Red Blood Cells % 0.3 %
[2025-07-23 09:25] LABS: Chloride 101 mmol/L (98-107); Potassium 4.3 mmol/L (3.5-5.1); Sodium 137 mmol/L (136-145)
[2025-07-23 09:26] LABS: Anion Gap 9 (5-15); Calcium 9.4 mg/dL (8.7-10.4); Carbon Dioxide 27 mmol/L (20-31)
--- NOTE | 2025-07-23 09:30 | DVH ---
CHEST RADIOGRAPH Indication: CP Technique: XY CHEST TWO VIEWS ROUTINE Comparison: None FINDINGS: The cardiac silhouette is unremarkable. The lungs demonstrate no pulmonary airspace consolidation. The pulmonary vasculature is unremarkable. There is no pleural effusion. There is no pneumothorax. Postsurgical changes heart/mediastinum. Isoh-hd-[id number] thoracic degenerative disc disease. IMPRESSION: No pulmonary airspace consolidation.
[2025-07-23 09:31] LABS: BUN/Creatinine Ratio 16.9 (10.0-20.0); Blood Urea Nitrogen 20 mg/dL (9-23)
[2025-07-23 09:35] VITALS: PULSE 84
--- NOTE | 2025-07-23 09:35 | ED.PDOC ---
HPI Comments This is a 75 year-old male with a Hx of DM, CVA, and HTN, who presents to the ED via wheelchair with a chief complaint of substernal chest pain as of last night. Patient has no further complaints at this time and otherwise denies symptoms of dizziness, weakness, palpitations, or N/V/D. Chief Complaint: Chest Pain Time Seen by MD: 09:15 Primary Care Provider: NONE Reviewed Notes: Medications, Allergies Allergies: Coded Allergies: NO KNOWN ALLERGIES (Unverified , 11/28/09) Home Meds Active Scripts Acetaminophen (Acetaminophen) 500 Mg Tab, 500 MG PO Q4HP PRN, #30 TAB Prov:DECLAN TREVIÑO PAC 12/04/24 Ibuprofen Micronized (Ibuprofen) 800 Mg Tab, 800 MG PO Q8HP PRN, #20 TAB Prov:DECLAN TREVIÑO PAC 12/04/24 Aspirin (Aspir-Low) 81 Mg Tab, 81 MG PO DAILY for 30 Days, #30 MG Prov:VINH LINARES MD 06/27/23 Reported Medications Magnesium Bisglycinate (Mag Glycinate) 100 Mg Tab, 100 MG PO, TAB 11/29/24 Cilostazol (Cilostazol) 100 Mg Tab, 100 MG PO BID for CIRCULATION, TAB 12/10/23 Tramadol Hcl (Tramadol Hcl) 50 Mg Tab, 1 TAB PO BIDP PRN for PAIN SCALE 7 THRU 10 06/25/23 Glipizide (Glipizide) 5 Mg Tab, 0.5 TAB PO DAILY for DIABETES 06/25/23 Lisinopril (Lisinopril) 20 Mg Tab, 1 TAB PO BID for HTN 06/25/23 Atorvastatin Calcium (ATORVASTATIN CALCIUM) 20 Mg Tab, 20 MG PO DAILY, TAB 02/14/15 Information Source: Patient Mode of Arrival: Wheelchair Severity: Moderate Timing: Hours Duration: Since onset Prehospital treatment: None Onset: At Rest, With Light Exertion, With Heavy Exertion Associated Signs and Symptoms: Other (chest pain ) Past Medical History PAST MEDICAL HISTORY: Arthritis, CVA, DM, HTN Surgical History: CABG, PTCA Family History Family History: Reviewed,noncontributory to illness Social History Smoker: Non-Smoker Alcohol: Denies ETOH Use Drugs: Denies Drug Use Lives In: Home Constitutional: denies: chills, diaphoresis, fatigue, fever, malaise, sweats, weakness, others EENTM: denies: blurred vision, double vision, ear bleeding, ear discharge, ear drainage, ear pain, ear ringing, eye pain, eye redness, hearing loss, mouth pain, mouth swelling, nasal discharge, nose bleeding, nose congestion, nose pain, photophobia, tearing, throat pain, throat swelling, voice changes, others Respiratory: denies: cough, hemoptysis, orthopnea, SOB at rest, shortness of breath, SOB with excertion, stridor, wheezing, others Cardiovascular: reports: chest pain; denies: dizzy spells, diaphoresis, Dyspnea on exertion, edema, irregular heart beat, left arm pain, lightheadedness, palpitations, PND, syncope, others Gastrointestinal: denies: abdomen distended, abdominal pain, blood streaked bowels, constipated, diarrhea, dysphagia, difficulty swallowing, hematemesis, melena, nausea, poor appetite, poor fluid intake, rectal bleeding, rectal pain, vomiting, others Genitourinary: denies: burning, dysuria, flank pain, frequency, hematuria, incontinence, penile discharge, penile sore, pain, testicle pain, testicle swelling, urgency, others Neurological: denies: dizziness, fainting, headache, left sided numbness, left sided weakness, numbness, paresthesia, pre-existing deficit, right sided numbness, right sided weakness, seizure, speech problems, tingling, tremors, weakness, others Musculoskeletal: denies: back pain, gout, joint pain, joint swelling, muscle pain, muscle stiffness, neck pain, others Integumetry: denies: bruises, change in color, change in hair/nails, dryness, laceration, lesions, lumps, rash, wounds, others Allergic/Immunocompromised: denies: Difficulty Healing, Frequent Infections, Hives, Itching, others Hematologic/Lymphatic: denies: anemia, blood clots, easy bleeding, easy bruising, swollen glands, others Endocrine: denies: excessive hunger, excessive sweating, excessive thirst, excessive urination, flushing, intolerance to cold, intolerance to heat, unexplained weight gain, unexplained weight loss, others Psychiatric: denies: anxiety, bipolar disorder, depression, hopeless, panic disorder, schizophrenia, sleepless, suicidal, others All Other Systems: Reviewed and Negative Physical Exam General Appearance: Moderate Distress HEENT: Normal ENT Inspection, Pharynx Normal, TMs Normal Neck: Full Range of Motion, Non-Tender, Normal, Normal Inspection Respiratory: Chest Non-Tender, Lungs Clear, No Accessory Muscle Use, No Respiratory Distress, Normal Breath Sounds Cardiovascular: No Edema, No JVD, No Murmur, No Gallop, Normal Peripheral Pulses, Regular Rate/Rhythm Breast Exam: Deferred Gastrointestinal: No Organomegaly, Non Tender, No Pulsatile Mass, Normal Bowel Sounds, Soft Genitalia: Deferred Pelvic: Deferred Rectal: Deferred Extremities: No calf tenderness, Normal capillary refill, Normal inspection, Normal range of motion, Non-tender, No pedal edema Musculoskeletal : Apperance: Normal Neurologic: Alert, wire bender hand II-XII nml as Tested, No Motor Deficits, Normal Affect, Normal Mood, No Sensory Deficits Cerebellar Function: Normal Reflexes: Normal Skin: Dry, Normal Color, Warm Peripheral Pulses: 3+ Radial (R), 3+ Radial (L) Lymphatic: No Adenopathy EKG EKG : Pulse Rate (adult): 84 [place]: LAD Cardiac Rhythm: NSR Was a procedure done? Was a procedure done?: No CP Differential Dx Differential Diagnosis: A-fib, A-Flutter, Angina, Anxiety / Panic Attack, Atrial Dysrhythmia, Electrolyte Disorder Differential Diagnosis: HTN Essential Differential Diagnosis: Angina, Chest Wall Pain, Cholelithiasis, Gastritis X-Ray, Labs, Meds, VS Vital Signs Date Time Temp Pulse Resp B/P (MAP) Pulse Ox O2 Delivery O2 Flow Rate FiO2 07/23/25 09:35 84 07/23/25 08:51 84 07/23/25 08:46 97.5 84 18 186/97 97 97.5 Lab Test 07/23/25 10:04 07/23/25 08:55 Range/Units Troponin I High Sensitivity 5 4 </=54 ng/L White Blood Count 7.1 4.4-10.8 10^3/uL Red Blood Count 5.25 4.5-5.90 10^6/uL Hemoglobin 16.9 13.5-17.5 g/dL Hematocrit 48.1 41.0-53.0 % Mean Corpuscular Volume 91.8 80.0-100.0 fL Mean Corpuscular Hemoglobin 32.3 H 28.0-32.0 pg Mean Corpuscular Hemoglobin Concent 35.2 32.0-36.0 g/dL Red Cell Distribution Width 13.0 11.8-14.3 % Platelet Count 213 140-450 10^3/uL Mean Platelet Volume 9.1 6.9-10.8 fL Neutrophils (%) (Auto) 63.6 37.0-80.0 % Lymphocytes (%) (Auto) 26.8 10.0-50.0 % Monocytes (%) (Auto) 7.0 0.0-12.0 % Eosinophils (%) (Auto) 1.8 0.0-7.0 % Basophils (%) (Auto) 0.8 0.0-2.0 % Neutrophils # (Auto) 4.5 1.6-8.6 10 ^3/uL Lymphocytes # (Auto) 1.9 0.4-5.4 10 ^3/uL Monocytes # (Auto) 0.5 0-1.3 10 ^3/uL Eosinophils # (Auto) 0.1 0-0.8 10 ^3/uL Basophils # (Auto) 0.1 0-0.2 10 ^3/uL Nucleated Red Blood Cells 0.3 % Sodium Level 137 136-145 mmol/L Potassium Level 4.3 3.5-5.1 mmol/L Chloride Level 101 98-107 mmol/L Carbon Dioxide Level 27 20-31 mmol/L Anion Gap 9 5-15 Blood Urea Nitrogen 20 9-23 mg/dL Creatinine 1.18 0.700-1.30 mg/dL Glomerular Filtration Rate Calc 65 >90 mL/min BUN/Creatinine Ratio 16.9 10.0-20.0 Serum Glucose 273 H 74-106 mg/dL Calcium Level 9.4 8.7-10.4 mg/dL [place] [id number] Ph: [phone] DIAGNOSTIC IMAGING Diagnostic Imaging Report : [id number] Signed PATIENT: SUDHIR CUNHA ACCT: [id number] UNIT: [id number] : 1950 LOC: ER ROOM / BED: / AGE / SEX: 75 / M ADM STATUS: REG ER SERVICE [id number] ORDERING PHYSICIAN: ARASELI FARLEY MD PROCEDURE(s): CXR2 - CHEST TWO VIEWS ROUTINE REASON: CP ORDER NUMBER(s): [id number], ACCESSION NUMBER(s): [id number] CHEST RADIOGRAPH Indication: CP Technique: XY CHEST TWO VIEWS ROUTINE Comparison: None FINDINGS: The cardiac silhouette is unremarkable. The lungs demonstrate no pulmonary airspace consolidation. The pulmonary vasculature is unremarkable. There is no pleural effusion. There is no pneumothorax. Postsurgical changes heart/mediastinum. [id number] thoracic degenerative disc disease. IMPRESSION: No pulmonary airspace consolidation. Patient alert. Came in for chest pain. Vitals stable. Answering questions. EKG does show old changes. Explained to the patient that he will need to be admitted for further testing. Echocardiogram. Continue monitoring. Time of 1ST Reevaluation: 10:21 Reevaluation 1ST: Unchanged Patient Education/Counseling: Diagnosis, Treatment Family Education/Counseling: No Family Present SEPSIS Sepsis Screen Date sepsis recognized/suspect: Jul 23, 2025 Time Sepsis recognized/suspect: 846 Recent Procedure: No On Antibiotic Therapy: No Respiratory Rate >20: No Heart Rate >90: No Temp<36 C (96.8 F) or >38.3 C: No SBP <90 or MAP <65 mmHG: No New Acute Mental Status Change: No Is the patient on CPAP, BIPAP,: No Physician Orders Chest Two Views Routine (07/23/25 08:47) Troponin-I Hs (07/23/25 11:47) Electrocardigram (07/23/25 09:47) Electrocardigram (07/23/25 11:47) Urinalysis (07/23/25 08:47) Vital Signs Date Time Temp Pulse Resp B/P (MAP) Pulse Ox O2 Delivery O2 Flow Rate FiO2 07/23/25 09:35 84 07/23/25 08:51 84 07/23/25 08:46 97.5 84 18 186/97 97 97.5 Laboratory Tests Test 07/23/25 08:55 White Blood Count 7.1 10^3/uL (4.4-10.8) Departure 1 Departure Time of Disposition: 10:58 Impression: Primary Impression: Chest pain of unknown etiology Additional Impressions: Hypertensive urgency Uncontrolled diabetes mellitus Qualified Codes: E13.65 - Other specified diabetes mellitus with hyperglycemia Disposition: ADMITTED INPATIENT Admit to: Med Surg Condition: Guarded Critical Care Note Critical Care Time?: Yes (90 min-critical care time only) Stability Stability form required: No Heart Score Heart Score: Heart Score Response (Comments) Value History Moderate Suspicious 1 EKG Normal 0 Age >65 2 Risk Factors 1 or 2 risk factors 1 Troponin N/A 0 Total 4 I personally scribed for ARASELI FARLEY MD ([email or web address]) on 07/23/25 at 09:35. Electronically submitted by Nicole Fink ([email or web address]). I personally scribed for ARASELI FARLEY MD ([email or web address]) on 07/23/25 at 09:36. Electronically submitted by Nicole Fink ([employer]). I personally scribed for ARASELI FARLEY MD ([email or web address]) on 07/23/25 at 10:00. Electronically submitted by Nicole Fink ([email or web address]). I personally scribed for ARASELI FARLEY MD ([email or web address]) on 07/23/25 at 10:00. Electronically submitted by Nicole Fink ([email or web address]). I personally scribed for ARASELI FARLEY MD ([email or web address]) on 07/23/25 at 10:21. Electronically submitted by Nicole Fink ([employer]). ARASELI FARLEY MD Jul 23, 2025 09:35
[2025-07-23 09:45] LABS: Glucose 273 mg/dL (74-106)
== END 2025-07-23 10:48 | disposition left against medical advice (07) ==
LOC: ER 08:44
DX: E11.65 Type 2 diabetes mellitus with hyperglycemia (principal); I16.0 Hypertensive urgency; R07.89 Other chest pain; I10 Essential (primary) hypertension; Z79.899 Other long term (current) drug therapy; Z86.73 Personal history of transient ischemic attack (TIA), and cerebral infarction without residual deficits
CPT/HCPCS: 36415; 71046; 80048; 84484; 85025; 93005